=== PATIENT | female | born 1955 | race Caucasian/White ===

== ENCOUNTER → 2019-04-06 13:09 | Outpatient (CLI) | payer MEDICARE, OTHER, SELFPAY ==
--- NOTE | ~2019-04-06 | MM_ITS ---
EXAMINATION: MM screening [facility] BI w kacy HISTORY: Screening mammogram TECHNIQUE: Craniocaudal and mediolateral oblique 3-D tomosynthesis images were obtained and synthetic 2-D images were generated. CAD analysis was submitted and interpreted. COMPARISON: 02/05/2014, 11/18/2009, 12/01/2006 BREAST PARENCHYMAL COMPOSITION: There are scattered areas of fibroglandular density. FINDINGS: Scattered benign-appearing calcifications are present. There is no evidence of suspicious m ass, calcification, or architectural distortion to suggest malignancy in either breast. There has bee n no suspicious interval change. IMPRESSION: 1. No mammographic evidence of malignancy. 2. Recommend routine screening mammography in one year. BI-RADS Category 2: Benign finding(s). Reviewed, dictated and finalized at location A. GER LINE
--- NOTE | ~2019-04-06 | DEXA_ITS ---
Bone Density Report Name: Jamia Medellin Age: 63 Sex: Female Ethnicity: White Date of : 1955 Indication: postmenopausal osteoporosis; height loss; Referring Provider: Korey, Petra Fernandes Study: Bone densitometry was performed. Exam Date: April 06, 2019 Accession number: [id number] Bone Density: Region BMD T-score Z-score Classification AP Spine (L1-L4) 0.645 -3.7 -1.9 Osteoporosis Femoral Neck (Left) 0.604 -2.2 -0.7 Osteopenia Total Hip (Left) 0.708 -1.9 -0.7 Osteopenia Femoral Neck (Right) 0.647 -1.8 -0.3 Osteopenia Total Hip (Right) 0.785 -1.3 0.0 Osteopenia Total Hip Mean 0.747 -1.6 -0.4 Osteopenia World Health Organization criteria for BMD impression classify patients as: Normal (T-score at or above -1.0), Osteopenia (T-score between -1.0 and -2.5), or Osteoporosis (T-score at or below -2.5). 10-year Fracture Risk: FRAX not reported because: Some T-score for Spine Total or Hip Total or Femoral Neck at or below -2.5 Previous Exams: Region Exam Age BMD T-score BMD Change BMD Change Date g/cm2 vs Baseline vs Previous AP Spine(L1-L4) 04/06/2019 63 0.645 -3.7 -0.104* 0.004 01/07/2011 55 0.641 -3.7 -0.108 -0.055 11/18/2009 54 0.696 -3.2 -0.053* -0.053* 12/01/2006 51 0.749 -2.7 Total Hip(Left) 04/06/2019 63 0.708 -1.9 -0.026 -0.026 01/07/2011 55 0.734 -1.7 Total Hip(Right) 04/06/2019 63 0.785 -1.3 -0.037* -0.037* 01/07/2011 55 0.822 -1.0 *Denotes significance at 95% confidence level, LSC for AP Spine = 0.022 g/cm2, LSC for Total Hip = 0.027 g/cm2 Clinical Information Provided by Patient: Has used the following medications: Vitamin D, Calcium Patient maximum height was 62 Menopause Age: 48 No regular weight bearing exercise Does not regularly consume dairy products Drinks caffeinated beverages Onset of menses at age 12 Number of children 3 Impression: The patient has osteoporosis, based on the Total Spine T-score. The BMD for the Total Hip(Right) decreased, changing by -0.037 since the last DXA exam. Discussion: INCREASED RISK OF FRACTURE. BONE DENSITY IS UNDESIRABLY LOW AT ONE OR MORE SKELETAL SITES, CONSISTENT WITH POSTMENOPAUSAL OSTEOPOROSIS. This patient's lowest T-score meets the World Health Organization's (WHO) criteria for osteoporosis at one or more sites (T-score -2.5 or below). In untreated patients, the risk of
== END ==
PROVIDERS: Visit Provider Nurse Practitioner Obstetrics & Gynecology
DX: Z12.31 Encounter for screening mammogram for malignant neoplasm of breast (principal); Z78.0 Asymptomatic menopausal state; M81.0 Age-related osteoporosis without current pathological fracture; M85.852 Other specified disorders of bone density and structure, left thigh; M85.851 Other specified disorders of bone density and structure, right thigh
CPT/HCPCS: 77063; 77067; 77080

== ENCOUNTER → 2020-08-06 14:03 | Outpatient (CLI) | payer MEDICARE, OTHER, SELFPAY ==
--- NOTE | ~2020-08-06 | MM_ITS ---
EXAMINATION: MM screening [facility] BI w kacy HISTORY: Screening TECHNIQUE: Craniocaudal and mediolateral oblique 3-D tomosynthesis images were obtained and synthetic 2-D images were generated. CAD analysis was submitted and interpreted. COMPARISON: Comparison to multiple prior studies sequentially, with oldest reviewed study dated 03/2013. BREAST PARENCHYMAL COMPOSITION: There are scattered areas of fibroglandular density. FINDINGS: There is no evidence of suspicious mass, calcification, or architectural distortion to sugg est malignancy in either breast. There has been no suspicious interval change. IMPRESSION: 1. No mammographic evidence of malignancy. 2. Recommend routine screening mammography in one year. BI-RADS Category 1: Negative Reviewed, dictated and finalized at location A.
== END ==
PROVIDERS: PCP Family Medicine Sports Medicine; Visit Provider Family Medicine Sports Medicine
DX: Z12.31 Encounter for screening mammogram for malignant neoplasm of breast (principal)
CPT/HCPCS: 77063; 77067

== ENCOUNTER → 2021-04-29 12:23 | Outpatient (CLI) | payer MEDICARE, OTHER, SELFPAY ==
--- NOTE | ~2021-04-29 | DEXA_ITS ---
Bone Density Report Name: GENTRY LYON Age: 65 Sex: Female Ethnicity: White Date of : 1955 Indication: postmenopausal osteoporosis; monitoring treatment; height loss; Referring Provider: Tati Levine Study: Bone densitometry was performed. Exam Date: April 29, 2021 Accession number: [id number] Bone Density: Region BMD T-score Z-score Classification AP Spine (L1-L4) 0.657 -3.5 -1.6 Osteoporosis Femoral Neck (Left) 0.569 -2.5 -0.9 Osteoporosis Total Hip (Left) 0.686 -2.1 -0.7 Osteopenia Femoral Neck (Right) 0.656 -1.7 -0.1 Osteopenia Total Hip (Right) 0.750 -1.6 -0.2 Osteopenia Total Hip Mean 0.718 -1.9 -0.5 Osteopenia World Health Organization criteria for BMD impression classify patients as: Normal (T-score at or above -1.0), Osteopenia (T-score between -1.0 and -2.5), or Osteoporosis (T-score at or below -2.5). 10-year Fracture Risk: FRAX not reported because: Some T-score for Spine Total or Hip Total or Femoral Neck at or below -2.5 Treated for osteoporosis Previous Exams: Region Exam Age BMD T-score BMD Change BMD Change Date g/cm2 vs Baseline vs Previous AP Spine(L1-L4) 04/29/2021 65 0.657 -3.5 -0.092 0.012 04/06/2019 63 0.645 -3.7 -0.104* 0.004 01/07/2011 55 0.641 -3.7 -0.108 -0.055 11/18/2009 54 0.696 -3.2 -0.053* -0.053* 12/01/2006 51 0.749 -2.7 Total Hip(Left) 04/29/2021 65 0.686 -2.1 -0.048* -0.022 04/06/2019 63 0.708 -1.9 -0.026 -0.026 01/07/2011 55 0.734 -1.7 Total Hip(Right) 04/29/2021 65 0.750 -1.6 -0.072* -0.035* 04/06/2019 63 0.785 -1.3 -0.037* -0.037* 01/07/2011 55 0.822 -1.0 *Denotes significance at 95% confidence level, LSC for AP Spine = 0.022 g/cm2, LSC for Total Hip = 0.027 g/cm2 Clinical Information Provided by Patient: Is being treated for osteoporosis Has used the following medications: Actonel (i.e. risedronate), Vitamin D, Calcium Patient maximum height was 62.0 Menopause Age: 48 No regular weight bearing exercise Drinks caffeinated beverages Onset of menses at age 12 Number of children 3 Impression: The patient has osteoporosis, based on the Total Spine T-score. The BMD for the Total Hip(Right) decreased, changing by -0.035 since the last DXA exam. Discussion: SIGNIFICANT BONE LOSS OBSERVED. Adherence to therapy
== END ==
PROVIDERS: PCP Family Medicine Sports Medicine; Visit Provider Obstetrics & Gynecology
DX: Z78.0 Asymptomatic menopausal state (principal); M85.89 Other specified disorders of bone density and structure, multiple sites; M81.0 Age-related osteoporosis without current pathological fracture
CPT/HCPCS: 77080

== ENCOUNTER → 2022-01-14 16:04 | Outpatient (CLI) | payer MEDICARE, OTHER, SELFPAY ==
--- NOTE | ~2022-01-14 | XR_ITS ---
EXAM: XR knee RT 3V DATE: 01/14/2022 16:39 HISTORY: Pain in right knee . COMPARISON: None available. FINDINGS: Decreased mineralization. Uncomplicated appearing medial compartment hemiarthroplasty. No fracture or dislocation. No lytic or blastic lesion. Moderate osteoarthritic changes. No erosion or p eriosteal change. Calcified possible loose bodies in the posterior and medial joint recesses. Small v olume joint fluid. IMPRESSION: Uncomplicated appearing hemiarthroplasty hardware. Calcified possible loose bodies in the posterior and medial joint recesses. Small right knee joint effusion. MR of the knee may be helpful for further evaluation. Reviewed, dictated and finalized at location K. IT UNION FIELD EXAMINER IMPRESSION: Uncomplicated appearing hemiarthroplasty hardware. Calcified possib le loose bodies in the posterior and medial joint recesses. Small right knee césar int effusion. MR of the knee may be helpful for further evaluation.
== END ==
PROVIDERS: PCP Nurse Practitioner Family; Visit Provider Nurse Practitioner Family
DX: M25.561 Pain in right knee (principal); Z96.651 Presence of right artificial knee joint; M25.461 Effusion, right knee
CPT/HCPCS: 73562

== ENCOUNTER 2023-11-13 19:32 | Emergency (ER) | payer MEDICARE, OTHER, SELFPAY ==
--- NOTE | ~2023-11-13 | CT_ITS ---
Noncontrast CT scan of the lumbar spine CLINICAL HISTORY: Back pain TECHNIQUE: Axial noncontrast imaging of the lumbar spine was performed. Sagittal and coronal reformat evangelist images were constructed. Dose reduction technique was used on this scan by utilizing automated ex posure control and iterative reconstruction technique. The dose-length product (DLP) was 538.59 mGy-c m. FINDINGS: There is acute moderate compression fracture at the superior aspect of the L1 vertebral bod y, with loss of height, and additional oblique fracture line through the anterosuperior corner. There are chronic bilateral L5 pars interarticularis defects, with 12 mm anterolisthesis of L5 over S1. At L1-L2, there is no significant disc bulge or herniation. No spinal canal stenosis or neural forami nal narrowing. At L2-L3, there is no significant disc bulge or herniation. No spinal canal stenosis or neural forami nal narrowing. At L3-L4, there is no significant disc bulge or herniation. There is minimal ligamentum flavum hypert rophy. No spinal canal stenosis or neural foraminal narrowing. At L4-L5, there is mild disc bulge and moderate facet arthropathy. There is probable mild to moderate central canal stenosis and moderate to advanced bilateral neural foraminal narrowing. At L5-S1, there is disc bulge/uncovering. Probable focal mild central canal stenosis. There is severe bilateral neural foraminal compromise. Paravertebral soft tissues are unremarkable. Impression: Acute L1 compression fracture, as detailed above. Chronic bilateral L5 pars interarticularis defects, with 12 mm anterolisthesis of L5 over S1. Moderate to advanced degenerative spondylosis at L4-L5. Advanced bilateral neural foraminal narrowing at L5-S1. Reviewed, dictated and finalized at [facility]. Impression: Acute L1 compression fracture, as detailed above. Chronic bilateral L5 pars interarticularis defects, with 12 mm anterolisthesis of L5 over S1. Moderate to advanced degenerative spondylosis at L4-L5. Advanced bilateral neur al foraminal narrowing at L5-S1.
[2023-11-13 19:42] VITALS: BP 133/108; PULSE 82; RESP 20; TEMP 36.7; O2SAT 98
--- NOTE | 2023-11-13 19:48 | PC.NURSE ---
ice pack given.
[2023-11-13 21:07] VITALS: BP 168/85; PULSE 68; RESP 17; O2SAT 96
--- NOTE | 2023-11-13 21:55 | ED.BACK ---
HPI - Back Pain/Injury General Chief Complaint: Back Pain/Injury Stated Complaint: lower back pain, fall off garment steamer Time Seen by Provider: 11/13/23 21:20 Source: patient Mode of arrival: EMS Limitations: no limitations History of Present Illness HPI Narrative: This is a 67 year old female that presents to the ER for low back pain. Reports she fell backwards off of a garment steamer. She fell onto her back. She did not hit her head or lose consciousness. Reports since she has had low back pain. Reports history of chronic low back problems. She took a muscle relaxer and was given Fentanyl by EMS. Denies saddle anesthesia, bowel/bladder incontinence, numbness or weakness. Related Data Home Medications Medication Instructions Recorded Confirmed calcium carbonate (Calcium 500) 500 mg PO DAILY 07/20/23 10/19/23 estradiol 0.5 mg tablet 0.5 mg PO DAILY 07/20/23 10/19/23 multivitamin (Daily Multi-Vitamin 1 tablet PO DAILY 07/20/23 10/19/23 tablet) Allergies Allergy/AdvReac Type Severity Reaction Status Date / Time No Known Allergies Allergy Verified 11/13/23 21:07 Review of Systems Review of Systems: CONSTITUTIONAL: Denies fever MUSCULOSKELETAL: Reports back pain, joint pain, and myalgia. NEUROLOGIC: Denies numbness, or weakness. All systems reviewed & are unremarkable except as noted in HPI and below PMFSH Past Medical History Medical History Hyperlipidemia Osteoporosis Surgical History Surgical History H/O eye surgery History of hysterectomy S/P knee replacement Family History Family History Mother Thyroid disorder Social History Social History Smoking status: Never smoker Alcohol intake: never Substance use: never Do You Feel Safe in your Home?: Yes Lack of Transportation: No Lack of Food: Never True Current Housing: I Have Housing Concerned About Future Housing: No Difficulty Paying Gas/Electric Bills: No Difficulty Paying for Meds: No Currently Unemployed: No Education: Don't Know Difficulty w/ Childcare or Family Care: No Living arrangements: alone Additional living arrangements comments: Occupation/Education: retired Spiritual care concerns: No Agree to blood products: Yes Exam Narrative: GENERAL: Well-appearing, well-nourished, and in no acute distress. HEAD: Normocephalic, atraumatic. EYES: EOMI. CHEST: Clear to auscultation. No respiratory distress. No wheezes rales or rhonchi HEART: Regular rate and rhythm. No murmur heard. Normal peripheral pulses. BACK: No midline thoracic spine tenderness. Tender to palpation of midline lumbar spine EXTREMITIES: Normal range of motion. No edema. Strength equal in bilateral lower extremities (5/5). Normal DP pulses SKIN: Warm, dry, no rash. NEURO: No focal deficits. Alert and oriented x3. PSYCH: Normal mood and affect Course Course Emergency Course: Patient updated on workup and agrees with plan of care Vital Signs Vital signs: Vital Signs Temperature 98.0 F 11/13/23 19:42 Pulse Rate 82 11/13/23 19:42 Respiratory Rate 20 11/13/23 19:42 Blood Pressure 133/108 H 11/13/23 19:42 Pulse Oximetry 98 11/13/23 19:42 Oxygen Delivery Room Air 11/13/23 19:42 Temperature 98.0 F 11/13/23 19:42 Pulse Rate 87 11/14/23 01:28 Respiratory Rate 18 11/14/23 01:28 Blood Pressure 133/88 11/14/23 01:28 Pulse Oximetry 98 11/14/23 01:28 Oxygen Delivery Room Air 11/13/23 19:42 MDM - Back Pain/Injury MDM Narrative Medical decision making narrative: Patient presents to the emergency department after a fall today with low back pain. She is neurologically intact. CT lumbar spine shows an acute mild compression fracture of L1. Patient updated on her work
[2023-11-14] MEDS: HYDROcodone/acetaminophen (*CRX) 5-325 MG TABLET 1 TAB PO (00:48)
[2023-11-14] MEDS: LIDOCAINE 5% PATCH 1 PATCH TRANSDERM (01:17)
[2023-11-14 01:28] VITALS: BP 133/88; PULSE 87; RESP 18; O2SAT 98
== END 2023-11-14 01:30 | disposition home or self-care (01) ==
PROVIDERS: Emergency Provider Physician Assistant; PCP Nurse Practitioner Family
DX: S32.018A Other fracture of first lumbar vertebra, initial encounter for closed fracture (principal); W17.89XA Other fall from one level to another, initial encounter; E78.5 Hyperlipidemia, unspecified; M81.0 Age-related osteoporosis without current pathological fracture
CPT/HCPCS: 72131; 99284; A9270

== ENCOUNTER 2023-12-02 14:59 | Outpatient (CLI) | payer MEDICARE, OTHER, SELFPAY ==
--- NOTE | ~2023-12-02 | XR_ITS ---
XR hip RT 2V w AP pelvis 12/02/2023 15:30 Indication: Hip pain Procedure: AP pelvis and 2 views right hip Comparison: No prior studies for comparison. Findings: Pelvic rings are intact. There is bilateral osteoarthritis of the hips, moderate on the rig ht and mild on the left. No fracture or traumatic malalignment. No significant soft tissue abnormalit y. No foreign bodies. Impression: 1: Bilateral osteoarthritis of the hips, right greater than left. Reviewed, dictated and finalized at location B. Impression: 1: Bilateral osteoarthritis of the hips, right greater than left.
--- NOTE | ~2023-12-02 | XR_ITS ---
EXAM: XR knee RT 3V DATE: 12/02/2023 15:30 HISTORY: M25.561 - Pain in right knee . COMPARISON: 01/14/2022. FINDINGS: Decreased mineralization. No fracture or dislocation. No lytic or blastic lesion. Uncompli cated appearing right medial compartment hemiarthroplasty hardware. Mild degenerative changes in the lateral and patellofemoral compartments. No erosion or periosteal change. Calcified/hyperdense foci o verlying the medial and posterior joint recesses. Small-volume joint fluid. IMPRESSION: Uncomplicated appearing arthroplasty hardware. Stable appearing hyperdensities overlying the posterior lateral joint recesses which may represent loose bodies. Small joint effusion. Reviewed, dictated and finalized at location K. IMPRESSION: Uncomplicated appearing arthroplasty hardware. Stable appearing hyp erdensities overlying the posterior lateral joint recesses which may represent loose bodies. Small joint effusion.
== END 2023-12-02 15:00 | disposition home or self-care (01) ==
PROVIDERS: PCP Orthopaedic Surgery; Visit Provider Nurse Practitioner Family
DX: M25.461 Effusion, right knee (principal); M16.11 Unilateral primary osteoarthritis, right hip; Z96.651 Presence of right artificial knee joint; R10.30 Lower abdominal pain, unspecified
CPT/HCPCS: 73502; 73562

== ENCOUNTER 2023-12-09 09:15 | Outpatient (CLI) | payer MEDICARE, OTHER, SELFPAY ==
--- NOTE | ~2023-12-09 | XR_ITS ---
3 VIEWS LUMBAR SPINE Ordering provider: Luis Alfredo Blair MD History: . S32.000A - Wedge compression fracture of unspecified lumb... . Comparison: None. FINDINGS: VERTEBRAL BODIES:Compression fracture of L1 which may be acute or chronic. MRI evaluation advised. Sp ondylolisthesis with spondylolysis is seen at the level of L5-S1. DISK SPACES: Narrowing of T12-L1 and L5-S1. SOFT TISSUES: Atherosclerotic changes of the aorta. IMPRESSION: Compression fracture of L1 with loss of volume of about 70% which is most likely acute. MRI confirmat ion advised. Spondylolisthesis with spondylolysis at the level of L5-S1. Reviewed, dictated and finalized at location A. IMPRESSION: Compression fracture of L1 with loss of volume of about 70% which is most likel y acute. MRI confirmation advised. Spondylolisthesis with spondylolysis at the level of L5-S1.
== END 2023-12-09 09:16 | disposition home or self-care (01) ==
LOC: ANHIMG 09:20
PROVIDERS: PCP Nurse Practitioner Family; Visit Provider Neurological Surgery
DX: S32.000A Wedge compression fracture of unspecified lumbar vertebra, initial encounter for closed fracture (principal)
CPT/HCPCS: 72100

== ENCOUNTER 2024-01-25 12:54 | Outpatient (CLI) | payer MEDICARE, OTHER, SELFPAY ==
--- NOTE | ~2024-01-25 | XR_ITS ---
EXAMINATION: XR lumbar spine 2-3V DATE: 01/25/2024 13:39 INDICATION: Wedge compression fracture of unspecified vertebra. TECHNIQUE: 3 views of lumbar spine were obtained. COMPARISON: Lumbar spine radiographs 12/09/2023 FINDINGS: There is 5 degrees dextrocurvature of lumbar spine. There are chronic bilateral L5 pars def ects. There is 10 mm anterolisthesis of L5 on S1. There is mild chronic height loss of L5 vertebral b mariana posteriorly. There is a burst fracture of L1 with 3/5 loss of height and focal kyphosis. There is mildly decreased disc height at T12-L1 and severely decreased disc height at L5-S1. IMPRESSION: 1. Burst fracture of L1, worsened from 11/14/2023. 2. Chronic bilateral L5 pars defects with grade 2 anterolisthesis of L5 on S1. 3. Severe lower lumbar spondylosis. Reviewed, dictated and finalized at location A. GAGE ACCOUNTING CLERK
--- NOTE | ~2024-01-25 | XR_ITS ---
EXAMINATION: XR thoracic spine 2V DATE: 01/25/2024 13:39 INDICATION: Collapsed vertebra, not elsewhere classified. TECHNIQUE: 3 views of thoracic spine including upright views were obtained. COMPARISON: Lumbar spine radiographs 12/09/2023 FINDINGS: There is an 8 degrees levocurvature of thoracic spine. There is a burst fracture of L1 with 3/5 loss of height, retropulsion of bone 5 mm into central spinal canal, and focal kyphosis. There i s mildly decreased disc height from T5-T6 through T9-T10. IMPRESSION: 1. L1 burst fracture, worsened from 12/09/2023. 2. Mild thoracic spondylosis. Reviewed, dictated and finalized at location A. GUARD SKATING RINK
== END 2024-01-25 12:55 | disposition home or self-care (01) ==
PROVIDERS: PCP Nurse Practitioner Family; Visit Provider Neurological Surgery
DX: S32.011A Stable burst fracture of first lumbar vertebra, initial encounter for closed fracture (principal); X58.XXXA Exposure to other specified factors, initial encounter; M47.815 Spondylosis without myelopathy or radiculopathy, thoracolumbar region
CPT/HCPCS: 72070; 72100

== ENCOUNTER 2024-02-09 09:01 | Outpatient (CLI) | payer MEDICARE, OTHER, SELFPAY ==
--- NOTE | ~2024-02-09 | DEXA_ITS ---
Bone Density Report Name: GENTRY LYON Age: 68 Sex: Female Ethnicity: White Date of : 1955 Indication: postmenopausal; screening for osteoporosis; parental hip fracture; prior fracture; hysterectomy; Referring Provider: YUNIEL SERRANO Study: Bone densitometry was performed. Exam Date: February 09, 2024 Accession number: [id number] Bone Density: Region BMD T-score Z-score Classification AP Spine(L2, L3, L4) 0.715 -3.3 -1.1 Osteoporosis Femoral Neck (Left) 0.565 -2.6 -0.8 Osteoporosis Total Hip (Left) 0.782 -1.3 0.2 Osteopenia Femoral Neck (Right) 0.667 -1.6 0.2 Osteopenia Total Hip (Right) 0.779 -1.3 0.2 Osteopenia Femoral Neck Mean 0.616 -2.1 -0.3 Osteopenia Total Hip Mean 0.780 -1.3 0.2 Osteopenia World Health Organization criteria for BMD impression classify patients as: Normal (T-score at or above -1.0), Osteopenia (T-score between -1.0 and -2.5), or Osteoporosis (T-score at or below -2.5). 10-year Fracture Risk: FRAX not reported because: Some T-score for Spine Total or Hip Total or Femoral Neck at or below -2.5 Prior hip or vertebral fracture Treated for osteoporosis Clinical Information Provided by Patient: Have had a previous hip or vertebral fracture Has had a low trauma fracture Parent has had a hip fracture Is being treated for osteoporosis Has used the following medications: Actonel (i.e. risedronate), HRT (i.e. estrogen/hormone therapy), Vitamin D, Calcium Has the following medical conditions: Hysterectomy Patient maximum height was 61 Menopause Age: 48 No regular weight bearing exercise Drinks caffeinated beverages Onset of menses at age 10 Number of children 3 Impression: The patient has established osteoporosis, based on the Total Spine T-score and the existence of a prior fracture. The patient has risk factors, including: parental hip fracture, previous fracture. Discussion: It is important to ask patients whether they are taking their medications and to encourage continued and appropriate compliance with their osteoporosis therapies to reduce fracture risk. It is also important to review their risk factors and encourage appropriate calcium and vitamin D intakes, exercise, fall prevention and other lifestyle measures. Follow-Up: Consider a repeat BMD and Vertebral Fracture Assessment (VFA) exam in 2 years or sooner if medically necessary, to reassess this patient's status. Reported by: ELAINA on 02/09/2024 9:24:00 AM. Reviewed, dictated and finalized at location A.
== END 2024-02-09 09:02 | disposition home or self-care (01) ==
PROVIDERS: PCP Nurse Practitioner Family; Visit Provider Nurse Practitioner Family
DX: Z78.0 Asymptomatic menopausal state (principal); M81.0 Age-related osteoporosis without current pathological fracture; M85.89 Other specified disorders of bone density and structure, multiple sites
CPT/HCPCS: 77080

== ENCOUNTER 2024-08-10 00:19 | Day surgery (SDC) | payer MEDICARE, OTHER, SELFPAY ==
[2024-08-02 14:42] VITALS: BMI 27.5
--- OUTSIDE RECORDS SUMMARY | 2024-08-10 01:31 | XMS_ITS | Data Portability ---
Author Organization [employer], [facility] Address [address] [address] Assessment No assessment recorded. Plan of Treatment Reminders Order Date Submit Date Provider Last Modified By Organization Details Last Modified Time Details Appointments None recorded. Lab None recorded. Referral None recorded. Procedures None recorded. Surgeries None recorded. Imaging XR, knee - WEIGHT BEARING AP, PA FLEX AND LATERAL VIEWS WITH A STANDARD [place] 2020 021 [email or web address] Not available 15:00:10 Medication Orders None recorded. Patient TargetsNo targets recorded. Patient InstructionsNo instructions recorded. Reason for Referral None Reported. Problems No Known Problems Procedures Surgical History Date Name Laterality Status Provider Name and Address Organization Details Recorded Time Generic Procedure completed [facility] [address] [place] [address], [id number], [employer] 08/27/2020 08:46:39 Imaging Results None recorded. Procedure Notes None recorded. Medical Equipment None Reported. Allergies No known drug allergies Medications Name Sig Start Date Stop Date Status Note LastModified by Organization Details LastModified Time risedronate 35 mg tablet TAKE ONE TABLET BY MOUTH ONCE A WEEK IN THE MORNING 30 MINUTES BEFORE FOOD DRINK OR MEDS active Not Available Not Available No t Available ezetimibe 10 mg tablet TAKE 1 TABLET BY MOUTH ONCE DAILY active Not Available Not Available No t Available Vitals Date Recorded Body height Body mass index (BMI) Body weight Body temperature Provider Name and Address Organization Details Last Updated DateTime 08/26/2020 152.4 cm 29.7 kg/m2 28805.04 g 97.3 [degF] [facility] Mon [facility] 08/26/2020 14:45:41 Social History Question Answer Notes LastModified by Organizat ion Details LastModified Time Tobacco Smoking Status Never Smoker [facility]ita willoughby [facility] 08/26/2020 14:46:36 Which Illicit Or Recreational Drugs Have You Used? No Information not available 08/26/2020 Marital Status Informatio n not available 08/26/2020 Sex: Unknown Functional Status Question Answer Note LastModified by Organizat ion Details LastModified Time What is your level of alcohol consumption? Occasional Information not available 08/26/2020 Mental Status None recorded. Family History Relationship Description Onset Age of this Age Resolved Age Notes LastModified by Organization Details LastModified Time Mother Hypothyroidi sm Not available 2020 14:46:13 Mother Kidney disease Not available 2020 14:46:25 Medical History Condition Response HIV or AIDS N Coronary Artery Disease N Other Cancer N Gout N Kidney Stones N Hyperthyroidism N Breast Cancer N Head Trauma/Injury N Hernia N Lung Cancer N Lung Disease N Hypothyroidism N Depression N Blood Clots N COPD N Pacemaker N Anxiety Disorder N Arthritis N Alcohol / Substance Abuse N Kidney Cancer N Cancer N Stroke N Neck Injury N Leg or Foot Ulcers N High Cholesterol N Skin Cancer N Liver Disease N Rheumatoid Arthritis N Fibromyalgia N Headaches N Concussion N Kidney Disease N Heart Problems N Prostate Cancer N Migraines N Thyroid Problems N Autoimmune Disorder N Anemia N Multiple Sclerosis N Tendon Tear N Ulcers N Heart Attack ([place]) N Diabetes N Bleeding Disorder N Seizures/Epilepsy N Cardiac Stent N Tuberculosis N Urinary Tract Infection N Back Problems N Diverticulitis N Asthma N Lupus N Peripheral Vascular Disease N Sleep Disorder N GERD/Reflux N Hepatitis N Aneurysm N Thyroid Cancer N Heart Disease N Pulmonary Embolism N Hypertension N Osteoporosis N Gynecological HistoryNo gynecological history recorded. Obstetrics History GPAL:G 0 P 0 0 0 0 Past Encounters Encounter ID Performer Location Encounter Start Date Encounter Closed Date Diagnosis/Indication Diagnosis SNOMED-CT Code Diagnosis ICD10 Code Diagnosis Note [id number] [facility] [address] [address] [facility] ,[address] [place] [id number] 08/26/2020 14:14:45 09/04/2020 11:25:53 Knee pain 63385337 M25.561 Osteoarthr itis of right knee joint 7320961134 75793 M17.11 Derangemen t of medial meniscus 441438349 M23.306 At today's office visit I had a lengthy discussion with the patient regards to her right knee. She does have a media meniscal extrusion that easily reduces with valgus loading. The recommenda tion at this time would be to see Dr. Velazquez to be evaluated for the Reynolds procedure. SHe currently has Medicare with a secondary of [employer] which Dr. Velazquez does not accept. We discussed other options in regards the right knee including treated with stem cell interventi on the utilizatio n of a medial bedspread inspector brace. She wants to try to obtain an appointmen t with Dr. Velazquez to discuss surgical options. Greater than 45 minutes face-to-fa ce visit with more than 50% of my time spent counseling the patient about their diagnosis including pathophysi ology and treatment options. Health Concerns Section Related Observation LastModified by Organization Detai ls LastModified Time None Recorded Concern Status LastModified by Organization Details LastModified Time None Recorded Advance Directives Directive None Recorded Payers Encounter Date Sequence Insurance Name Policy Number Policy Hernández Covered Member ID Hernández Member ID Guarantor Name 08/26/2020 2 [place] (MEDICARE SUPPLEMENT) Jamia Medellin [id number] Jamia Medellin 08/26/2020 1 [place] Jamia Medellin [id number] Jamia Medellin Notes Date Note Type Note Provider Name and Address Organization Details Recorded Time 08/26/2020 text/html 64-year-old fema ann comes in today complaining of pain and discomfort in her right knee is been ongoing since April when she was pulled down a hill by her dog she twisted her knee and started to experience pain and discomfort on the medial aspect. Pain is steadily gotten better. She describes the pain is intermittent. She rates her pain as a 3/10. She also complains of giving way. Going up and down steps causes her the most pain. Ice rest and Tylenol have helped. She has also tried physical therapy as well as a corticosteroid injection. Corticosteroid injection was approximately 2 weeks ago and provided her with mild benefit. She denies any locking popping or giving way. [facility] [address], [place], [address], [facility] [employer] [facility], [facility] 08/27/2020 08:58:55 OBGyn Episode No OBEpisode recorded.
--- OUTSIDE RECORDS SUMMARY | 2024-08-10 01:31 | XMS_ITS | Data Portability ---
Author Organization [facility] [employer], Main Office Address [address] [place] [address] Assessment Encounter Date Assessment Date Assessment LastModified by Organization Details LastModified Time 11/18/2022 11/18/2022 EKG and Letter of surgery Clearance given to patient and faxed 11/18/22 Not available 11/18/2022 15:21:57 Plan of Treatment Reminders Order Date Submit Date Provider Last Modified By Organization Details Last Modified Time Details Appointments None recorded. Lab lipid panel, serum 2022 023 [facility], [address] [facility], [place], [address], 3 21:11:56 hepatic function panel, serum 2022 023 [facility], [address] [facility], [place], [address], 3 21:11:58 BMP, serum or plasma 2022 023 [facility], [address] [facility], [place], [address], 21:11:57 Referral None recorded. Procedures None recorded. Surgeries None recorded. Imaging electrocard iogram 2023 024 Not available 4 08:24:23 electrocard iogram 2022 023 [facility], [address] [place] [address], [place], [address], 3 16:21:55 Medication Orders rosuvastati n 5 mg tablet 2023 024 [facility] [address] [facility], [place], [address], 4 11:01:08 triamcinolo ne acetonide 0.5 % topical cream 2022 023 [facility] #[id number], [address] , [place], [address], 3 14:37:15 triamcinolo ne acetonide 40 mg/mL suspension for injection 2022 023 Not available 3 14:37:19 Patient TargetsNo targets recorded. Patient Instructions Encounter Date Encounter Id Patient Instructions Last Modified By Organization Details Last Modified Time 06/09/2022 [id number] mo fu herpes, osteoporosis, hyperlipidemia, depression- with CA. Vaginal prolapse. Not available 06/09/2022 14:35:43 Reason for Referral None Reported. Results Created Date Observation Date Name Description Value Unit Range Abnormal Flag Note LastModifiedBy Organization Detail LastModifiedTime 07/02/1907/01/2022 LIPID PANEL , STAND TOBY cholesterol, total 185 mg/dL <200 normal Not Available [facility] [address] [address] [place], [address], 07/01/2022 21:11:56 07/02/1907/01/2022 LIPID PANEL , STAND TOBY HDL cholesterol 49 mg/dL > or = 50 low Not Available [facility] [address] [address], [place], [address], 07/01/2022 21:11:56 07/02/1907/01/2022 LIPID PANEL , STAND TOBY triglyceride s 139 mg/dL <150 normal Not Available [facility] [address] [place], [address], 07/01/2022 21:11:56 07/02/1907/01/2022 LIPID PANEL , STAND TOBY LDL-choleste rol 111 mg/dL _(arslan c) high Refer ence range : <100 Jenniffer able range <100 mg/dL for prima ry preve ntion ; <70 mg/dL for patie nts with CHD or diabe tic patie nts with > or = 2 CHD risk facto rs. LDL-C is now calcu lated using the Jess n-Hop kins calcu wenceslao n, which is a valid ated novel metho d provi ding ne r accur acy than the Fried ciara equat ion in the estim ation of LDL-C . Jess n SS et al. [place]. 2013; 310(1 9): 2061- 2068 (http ://ed ucati on.[employer]. com/f aq/FA Q164) Not Available [facility] [address] [place], [address], 07/01/2022 21:11:56 07/02/1907/01/2022 LIPID PANEL , STAND TOBY chol/HDLC ratio 3.8 (calc ) <5.0 normal Not Available [facility] [address] [place], [address], 07/01/2022 21:11:56 07/02/1907/01/2022 LIPID PANEL , STAND TOBY non HDL cholesterol 136 mg/dL _(arslan c) <130 high For patie nts with diabe mikhail plus 1 major ASCVD risk facto r, treat ing to a non-H DL-C goal of <100 mg/dL (LDL- C of <70 mg/dL ) is consi dered a thera peuti c optio n. Not Available [facility] [address] [place], [address], 07/01/2022 21:11:56 07/02/1907/01/2022 BASIC METAB OLIC PANEL glucose 105 mg/dL 65-99 high Fasti ng refer ence inter lesa For someo ne witho ut known diabe mikhail, a gluco se value betwe en 100 and 125 mg/dL is consi stent with predi abete s and shoul d be confi rmed with a follo w-up test. Not Available [address], [address], 07/01/2022 21:11:57 07/02/19 23 07/01/2022 BASIC METAB OLIC PANEL urea nitrogen (BUN) 16 mg/dL 7-25 normal Not Available [facility] [address], [address], 07/01/2022 21:11:57 07/02/19 23 07/01/2022 BASIC METAB OLIC PANEL creatinine 0.90 mg/dL 0.50-1 .05 normal Not Available [address] [address] [place], [address], 07/01/2022 21:11:57 07/02/19 23 07/01/2022 BASIC METAB OLIC PANEL eGFR 70 mL/mi n/1.7 3m2 > or = 60 normal The eGFR is based on the CKD-E PI 2020 equat ion. To calcu late the new eGFR from a previ ous Creat inine or Cysta shaw C resul t, go to https ://iman champion.thi burnett/noe wynn s/ kdoqi /gfr% 5Fcal culat or Not Available [address] [address] [place], [address], 07/01/2022 21:11:57 07/02/19 23 07/01/2022 BASIC METAB OLIC PANEL BUN/creatini ne ratio NOT APPLIC ABLE (calc ) 6-22 Not Available [address] [address] [place], [address], 07/01/2022 21:11:57 07/02/19 23 07/01/2022 BASIC METAB OLIC PANEL sodium 141 mmol/ L 135-14 6 normal Not Available [facility] [address] [address] [place], [address], 07/01/2022 21:11:57 07/02/19 23 07/01/2022 BASIC METAB OLIC PANEL potassium 4.5 mmol/ L 3.5-5. 3 normal Not Available [address], [address], 07/01/2022 21:11:57 07/02/19 23 07/01/2022 BASIC METAB OLIC PANEL chloride 105 mmol/ L 98-110 normal Not Available [address], [address], 07/01/2022 21:11:57 07/02/19 23 07/01/2022 BASIC METAB OLIC PANEL carbon dioxide 29 mmol/ L 20-32 normal Not Available [address], [address], 07/01/2022 21:11:57 07/02/19 23 07/01/2022 BASIC METAB OLIC PANEL calcium 9.6 mg/dL 8.6-10 .4 normal Not Available [address], [address], 07/01/2022 21:11:57 07/02/19 23 07/01/2022 HEPAT IC FUNCT ION PANEL protein, total 7.1 g/dL 6.1-8. 1 normal Not Available [address], [address], 07/01/2022 21:11:57 07/02/19 23 07/01/2022 HEPAT IC FUNCT ION PANEL albumin 4.1 g/dL 3.6-5. 1 normal Not Available [address], [address], 07/01/2022 21:11:57 07/02/19 23 07/01/2022 HEPAT IC FUNCT ION PANEL globulin 3.0 g/dL_ (calc ) 1.9-3. 7 normal Not Available [address], [address], 07/01/2022 21:11:57 07/02/19 23 07/01/2022 HEPAT IC FUNCT ION PANEL albumin/glob ulin ratio 1.4 (calc ) 1.0-2. 5 normal Not Available [address], [address], 07/01/2022 21:11:57 07/02/19 23 07/01/2022 HEPAT IC FUNCT ION PANEL bilirubin, total 0.5 mg/dL 0.2-1. 2 normal Not Available [address], [address], 07/01/2022 21:11:57 07/02/19 23 07/01/2022 HEPAT IC FUNCT ION PANEL bilirubin, direct 0.1 mg/dL < or = 0.2 normal Not Available [address], [address], 07/01/2022 21:11:57 07/02/19 23 07/01/2022 HEPAT IC FUNCT ION PANEL bilirubin, indirect 0.4 mg/dL _(arslan c) 0.2-1. 2 normal Not Available [address], [address], 07/01/2022 21:11:57 07/02/19 23 07/01/2022 HEPAT IC FUNCT ION PANEL alkaline phosphatase 75 U/L 37-153 normal Not Available [address] [address] [place], [address], 07/01/2022 21:11:57 07/02/19 23 07/01/2022 HEPAT IC FUNCT ION PANEL AST 13 U/L 10-35 normal Not Available [address], [address], 07/01/2022 21:11:57 07/02/19 23 07/01/2022 HEPAT IC FUNCT ION PANEL ALT 9 U/L 6-29 normal Not Available [facility] [address] [address], [place], [address], 07/01/2022 21:11:57 01/15/20 22 01/14/2022 XR, knee, 3 view No observ ation record ed. [id number] [facility] [address] [facility] [address], [place], [address], 05/07/2022 00:29:12 11/19/19 23 elect kristin diogr am No observ ation record ed. [email or web address] [facility] [address], [place], [address], 11/18/2022 15:00:50 Result Notes None recorded. Problems Name Problem SNOMED Code Status Onset Date Resolution Date Notes Provider Name and Address Organization Details Recorded Time Family history of Thyroid disorder 789181009 Active 2021 Not Available [facility] 3 00:28:00 Eruption 001443309 Active 2021 Not Available [facility] 3 00:28:00 Obesity 961795378 Active 2021 Not Available [facility] 3 00:28:00 Hyperlipidemi a 53483343 Active 2021 Not Available [facility] 3 00:28:00 Osteoporosis 97537722 Active 2021 Not Available [facility] 3 00:28:00 Herpes simplex 95839301 Active 2021 Type I and II per test 2 lab. Not Available [facility] 3 00:28:00 Skin lesion 70832277 Active 2021 Not Available [facility] 3 00:28:00 Low back strain 978774669 Active 2022 Winifred Medina, MARAL [address] [facility], [facility] [address], [place], [address] , [facility] 3 14:30:08 Contact dermatitis caused by urushiol from [facility] 691031631 Active 2022 Winifred Medina NP [address], [address], [place], [address] , [employer] [facility] 3 17:44:28 Uterine prolapse 83976098 Active 2022 Winifred Medina NP [address] [facility], [address], [place], [address] , [employer] 3 14:50:27 Herpes simplex type 2 infection 480751407 Active 2022 Winifred Medina NP [address] [facility], [address], [place], [address] , [employer] 3 15:03:42 Herpes simplex type 1 infection 624597469 Active 2022 Winifred Medina NP [address] [facility], [address], [place], [address] , [employer] 3 15:03:51 Problem Notes None recorded. Procedures Surgical History Date Name Laterality Status Provider Name and Address Organization Details Recorded Time 03/08/19 23 hysterectomy completed Winifred Gresham RN [facility] [employer] 06/09/2023 10:30:29 07/09/19 22 operation on retina completed Not Available [facility] 05/07/2022 00:27:05 Knee Replacement completed Not Available [facility] 05/07/2022 00:27:05 Imaging Results None recorded. Procedure Notes None recorded. Medical Equipment None Reported. Allergies No known drug allergies Medications Name Sig Start Date Stop Date Status Note LastModified by Organization Details LastModified Time amoxicillin 500 mg capsule TAKE 1 CAPSULE BY MOUTH 3 TIMES A DAY 11/18 completed Not Available Not Available Not Available triamcinolo ne acetonide 0.5 % topical cream APPLY A THIN LAYER TO THE AFFECTED AREA(S) BY TOPICAL ROUTE 2 TIMES PER DAY for 7 days 11/18 completed Not Available Not Available Not Available ofloxacin 0.3 % eye drops INSTILL 1 DROP INTO THE RIGHT EYE 3 TIMES DAILY 06/09 completed Not Available Not Available Not Available hydrocodone 5 mg-acetamin ophen 325 mg tablet TAKE 1 TABLET BY MOUTH EVERY 4-6 HOURS NEEDED FOR PAIN 11/18 completed Not Available Not Available Not Available acyclovir 400 mg tablet TAKE 1 TABLET BY MOUTH THREE TIMES A DAY NEEDED FOR OUTBREAKS X5 DAYS 06/08 completed Not Available Not Available Not Available valacyclovi r 500 mg tablet TAKE 1 TABLET BY MOUTH FOUR TIMES A DAY FOR 7 DAYS 01/14 completed Not Available Not Available Not Available sulfamethox azole 800 mg-trimetho prim 160 mg tablet TAKE 1 TABLET BY MOUTH EVERY 12 HOURS BEGIN POST SURGERY 06/08 completed Not Available Not Available Not Available triamcinolo ne acetonide 0.1 % topical cream APPLY TO AFFECTED AREA TWICE A DAY 11/18 completed Not Available Not Available Not Available dexamethaso ne sodium phosphate 0.1 % eye drops INSTILL ONE DROP INTO RIGHT EYE 4 TIMES A DAY. 06/09 completed Not Available Not Available Not Available oxycodone-a cetaminophe n 5 mg-325 mg tablet 05/08 completed Not Available Not Available Not Available triamcinolo ne acetonide 40 mg/mL suspension for injection Take 60 mg every day by injection route for 1 day. 11/18 completed Not Available Not Available Not Available cephalexin 500 mg capsule 05/08 completed Not Available Not Available Not Available tobramycin 0.3 % eye drops INSTILL 1 DROP INTO RIGHT EYE 4 TIMES DAILY STARTING AFTER SURGERY 12/12 completed Not Available Not Available Not Available Methylpredn isolone (Mckinley) 4 mg tablets in a dose pack Take by oral route as directed. 11/18 completed Not Available Not Available Not Available docusate sodium 100 mg capsule TAKE 1 CAPSULE BY MOUTH TWICE DAILY BEGIN AFTER SURGERY active Not Available Not Available No t Available diclofenac sodium 75 mg tablet,arvin yed release TAKE 1 TABLET BY MOUTH TWICE A DAY 05/08 completed Not Available Not Available Not Available lovastatin 20 mg tablet active Not Available Not Available Not Available estradiol 0.01% (0.1 mg/gram) vaginal cream USE 0.5 GRAMS VAGINALLY AT BEDTIME ON WEDNESDAY, AND WEDNESDAY AFTER PACKING REMOVED active Not Available Not Available No t Available methylpredn isolone 4 mg tablets in a dose pack TAKE 6 TABS ON DAY 1 DIRECTED ON PACKAGE AND DECREASE BY 1 TAB EACH DAY FOR 6 DAYS *START 10/09* 11/18 completed Not Available Not Available Not Available ondansetron 4 mg disintegrat ing tablet DISSOLVE 1 TABLET BY MOUTH ON TOP OF TONGUE AND SWALLOW EVERY 6 HOURS 06/08 completed Not Available Not Available Not Available tobramycin 0.3 %-dexametha sone 0.1 % eye drops,suspe nsion INSTILL 1 DROP 4 TIMES A DAY IN LEFT EYE-START DROPS AFTER SURGERY active Not Available Not Available No t Available oxycodone 5 mg tablet 06/08 completed Not Available Not Available Not Available ezetimibe 10 mg tablet TAKE 1 TABLET BY MOUTH ONCE DAILY 01/14 completed Not Available Not Available Not Available rosuvastati n 5 mg tablet TAKE 1 TABLET BY MOUTH ONCE DAILY active Not Available Not Available No t Available risedronate 150 mg tablet TAKE 1 TABLET BY MOUTH EVERY MONTH active Not Available Not Available No t Available Xarelto 10 mg tablet 05/08 completed Not Available Not Available Not Available triamcinolo ne 0.1 % topical ointment and dimethicone 5 % topical cream as directed 11/18 completed Not Available Not Available Not Available BinaxNOW COVID-19 Ag Self Test kit Use as Directed on the Package 12/12 completed Not Available Not Available Not Available Vitals Date Recorded Systolic blood pressure Diastolic blood pressure Provider Name and Address Organization Details Last Updated DateTime 06/09/2023 140 mm[Hg] 72 mm[Hg] Jory Ross, [employer] [address] [facility], [facility] [address], [place], [address], [facility] [employer] 06/09/2023 10:52:19 Date Recorded Body height Body mass index (BMI) Body weight Body temperature Respiratory rate Oxygen saturation Oxygen saturation in Arterial blood by Pulse oximetry Provider Name and Address Organization Details Last Updated DateTime 154.94 cm 29 kg/m2 39145.7 8 g 96.7 [degF] 20 /min 99 % 99 % Winifred Gresham RN [facility] [employer] 10:32:27 Date Recorded Systolic blood pressure Diastolic blood pressure Provider Name and Address Organization Details Last Updated DateTime 06/09/2022 138 mm[Hg] 82 mm[Hg] Winifred Medina NP [address] [facility], [address], [place], [address], [facility] 06/09/2022 14:31:13 Date Recorded Body height Body mass index (BMI) Body weight Body temperature Heart rate Respiratory rate Oxygen saturation Oxygen saturation in Arterial blood by Pulse oximetry Systolic blood pressure Diastolic blood pressure Provider Name and Address Organization Details Last Updated DateTime 3 154.94 cm 28.9 kg/m2 37941.6 3 g 95.9 [degF] 62 /min 16 /min 97 % 97 % 152 mm[Hg] 88 mm[Hg] Winifred Gresham RN [facility] 3 14:13:19 Date Recorded Body height Body mass index (BMI) Body weight Body temperature Heart rate Respiratory rate Oxygen saturation Oxygen saturation in Arterial blood by Pulse oximetry Systolic blood pressure Diastolic blood pressure Provider Name and Address Organization Details Last Updated DateTime 3 154.94 cm 28.5 kg/m2 06282.8 g 96.5 [degF] 67 /min 20 /min 94 % 94 % 150 mm[Hg] 98 mm[Hg] Winifred Gresham RN [facility] 3 17:37:49 Date Recorded Systolic blood pressure Diastolic blood pressure Systolic blood pressure Diastolic blood pressure Provider Name and Address Organization Details Last Updated DateTime 11/18/2022 146 mm[Hg] 82 mm[Hg] 146 mm[Hg] 82 mm[Hg] David Medina NP [address] [facility] [address], [place], [address] , [facility] 3 14:55:22 Date Recorded Body height Body mass index (BMI) Body weight Body temperature Heart rate Respiratory rate Oxygen saturation Oxygen saturation in Arterial blood by Pulse oximetry Provider Name and Address Organization Details Last Updated DateTime 3 154.94 cm 28.7 kg/m2 36083.7 4 g 96.4 [degF] 68 /min 16 /min 98 % 98 % Winifred Gresham RN [facility] 3 14:38:23 Date Recorded Body mass index (BMI) Body height Oxygen saturation Oxygen saturation in Arterial blood by Pulse oximetry Heart rate Body temperature Body weight Systolic blood pressure Diastolic blood pressure Provider Name and Address Organization Details Last Updated DateTime 2 27.4 kg/m2 154.94 cm 95 % 95 % 89 /min 97.6 [degF] 95769.8 9 g 130 mm[Hg] 78 mm[Hg] Not Available [facility] 00:27:13 Social History Question Answer Notes LastModified by Organization Details LastModified Time Tobacco Smoking Status Never Smoker Not Available [facility] 05/07/2022 00:26:27 Do You Have An Advance Directive? Yes [email or web address].030 [id number] Information not available 05/07/2022 Are You Blind Or Do You Have Difficulty Seeing? No MIGRATION.030 [id number] Information not available 05/07/2022 Is Blood Transfusion Acceptable In An Emergency? Yes Information not available 11/18/2022 What Is Your Level Of Caffeine Consumption? Moderate MIGRATION.030 [id number] Information not available 05/07/2022 In The 14 Days Before Symptom Onset, Have You Had Close Contact With A Laboratory-confi rmed COVID-19 While That Case Was Ill? No MIGRATION.030 [id number] Information not available 05/07/2022 In The 14 Days Before Symptom Onset, Have You Had Close Contact With A Person Who Is Under Investigation For COVID-19 While That Person Was Ill? No MIGRATION.030 [id number] Information not available 05/07/2022 Are You Deaf Or Do You Have Serious Difficulty Hearing? No MIGRATION.030 [id number] Information not available 05/07/2022 What Type Of Diet Are You Following? REGULAR MIGRATION.030 [id number] Information not available 05/07/2022 What Is The Highest Grade Or Level Of School You Have Completed Or The Highest Degree You Have Received? [id number] MIGRATION.[id number] Information not available 05/07/2022 Have There Been Any Changes To Your Family Or Social Situation? Yes Recently Dx With Bone/lung Information not available 06/09/2022 What Is The Fluoride Status Of Your Home? Unknown MIGRATION.030 [id number] Information not available 05/07/2022 Are There Any Guns Present In Your Home? No MIGRATION.030 [id number] Information not available 05/07/2022 Do You Use Insect Repellent Routinely? No MIGRATION.0301 [id number] Information not available 05/07/2022 Where Do You Live? SingleLevelHouse With Basement MIGRATION.0301 [id number] Information not available 05/07/2022 Do You Have A Medical Power Of Greaser And Oiler? Yes Daughter Information not available 11/18/2022 What Was The Date Of Your Most Recent Tobacco Screening? 01/13/2022 MIGRATION.0301 [id number] Information not available 05/07/2022 How Many Children Do You Have? 3 Information not available 06/09/2022 Do You Have Any Pets? Yes MIGRATION.0301 [id number] Information not available 05/07/2022 What Is Your Relationship Status? MIGRATION.0301 [id number] Information not available 05/07/2022 Do You Use Your Seat Belt Or Car Seat Routinely? Yes MIGRATION.0301 [id number] Information not available 05/07/2022 Do You Have Smoke And Carbon Monoxide Detectors In Your Home? Yes MIGRATION.0301 [id number] Information not available 05/07/2022 Do You Participate In Social Media? Yes MIGRATION.0301 [id number] Information not available 05/07/2022 Do You Use Sunscreen Routinely? No MIGRATION.0301 [id number] Information not available 05/07/2022 Has Tobacco Cessation Counseling Been Provided? No MIGRATION.0301 [id number] Information not available 05/07/2022 Have You Recently Traveled Abroad? No MIGRATION.0301 [id number] Information not available 05/07/2022 Do You Have Difficulty Walking Or Climbing Stairs? No MIGRATION.0301 [id number] Information not available 05/07/2022 Are You Currently In School? No MIGRATION.0301 [id number] Information not available 05/07/2022 Do You Have Any Dietary Restrictions? No MIGRATION.0301 [id number] Information not available 05/07/2022 Sex: Female Functional Status Question Answer Note LastModified by Organizat ion Details LastModified Time Do you use any illicit or recreational drugs? No MIGRATION.32475 [id number] Information not available 05/07/2022 Do you or have you ever used any other forms of tobacco or nicotine? No MIGRATION.96790 13687 Information not available 05/07/2022 What is your level of alcohol consumption? Occasional MIGRATION.48857 33028 Information not available 05/07/2022 Are you currently employed? No retired Information not available 06/09/2022 Do you have transportation difficulties? No MIGRATION.50208 [id number] Information not available 05/07/2022 Are you able to walk? YESWOREST MIGRATION.10335 45363 Information not available 05/07/2022 Do you have difficulty doing errands alone? No MIGRATION.01084 18078 Information not available 05/07/2022 Are you able to care for yourself? Yes MIGRATION.52206 83995 Information not available 05/07/2022 Do you have difficulty dressing or bathing? No MIGRATION.19341 08231 Information not available 05/07/2022 What is your exercise level? None active lifestyle Information not available 06/09/2022 Mental Status Question Answer Note LastModified by Organizat ion Details LastModified Time Do you feel stressed (tense, restless, nervous, or anxious, or unable to sleep at night)? [id number] Information not available 10/13/2022 Do you have difficulty concentrating, remembering or making decisions? No [id number] Information not available 05/07/2022 Family History Relationship Description Onset Age of this Age Resolved Age Notes LastModified by Organization Details LastModified Time Mother Kidney disease MIGRATION.947 [id number] Not available 05/07/2022 00:27:06 Mother Hypothyroidi sm MIGRATION.325 [id number] Not available 05/07/2022 00:27:06 Sister Malignant tumor of colon 55 MIGRATION.750 [id number] Not available 05/07/2022 00:27:06 Sister Malignant tumor of cervix 30 MIGRATION.986 [id number] Not available 05/07/2022 00:27:06 Notes:Doesn't know who biolo gical dad is. Medical History Condition Response BLINDNESS N RHEUMATIC FEVER N KIDNEY STONES N BLADDER PROBLEMS Y MRSA N OTHER # 1 N POLIO N LUNG DISEASE/DISORDER N HISTORY OF DRUG ABUSE N RADIATION / CHEMOTHERAPY N COPD N Other # 2 N BLOOD DISEASES N SURGERY N EAR OR HEARING PROBLEMS N MUMPS N SHINGLES N FEMALE PROBLEMS / INFECTIONS N DEPRESSION (INCLUDING POST ) N BOWEL PROBLEMS N STROKE/TIA N THYROID DISEASE N ULCERS N BENIGN PROSTATIC HYPERPLASIA N MEASLES N CERVICALGIA N TB SKIN TEST N HYPOTENSION N MYOCARDIAL INFARCTION N PARAPELGIA N OBESITY N GERD/NAUSEA N ANEURYSM N URINARY/BLADDER/KIDNEY PROBLEMS N CORONARY ARTERY DISEASE (CAD) N MENIERE'S DISEASE N ADDICTION CONCERNS N ENDOMETRIOSIS N USE OF BLOOD THINNERS N SKIN PROBLEMS N EMPHYSEMA N GASTROINTESTINAL DISORDER N MUSCLE,JOINT OR BONE PROBLEMS N GASTROINTESTINAL BLEEDING N BLOOD CLOTS N ASTHMA N CATARACTS N ERECTILE DYSFUNCTION N GI PROBLEMS N CHF N Low Testosterone N NEUROPATHY N INFERTILITY N AIDS/HIV N FRACTURES N CHEMOTHERAPY / RADIATION N VISION/EYE PROBLEMS N LIVER DISEASE N MALE HYPOGONADISM N HYPERTENSION Y TOURETTE'S N ANXIETY DISORDER N BLOOD TRANSFUSION N ANEMIA/BLOOD DISORDER N CHRONIC EAR INFECTIONS N BRONCHITIS N TUBERCULOSIS N GLAUCOMA N FOOT PROBLEM N DIVERTICULITIS N SLEEP APNEA N CHICKENPOX N ALLERGIES/HAYFEVER N INFECTIOUS DISEASE N PROSTATE N HEART ARRHYTHMIA N INSOMNIA N HIGH CHOLESTEROL / HYPERLIPIDEMIA Y HYPERTHYROIDISM N EYE PROBLEMS N EATING DISORDER N EDEMA N CHRONIC PAIN SYNDROME N CONSTIPATION N CAROTID BLOCKAGE N BACK / NECK PROBLEMS N HAVE YOU BEEN HOSPITALIZED OR SEEN IN [facility] IN THE PAST YEAR ? N ATHEROSCLEROSIS N BREAST PROBLEMS N DIALYSIS N ECZEMA N FIBROMYALGIA N OSTEOPOROSIS Y ARTHRITIS N NO SIGNIFICANT PAST MEDICAL HISTORY N APPENDICITIS N DIABETES, TYPE N BAD TEETH N HEARTBURN / REFLUX N ADD/ADHD N AUTISM SPECTRUM DISORDER (ASD) N HEPATITIS / LIVER DISEASE N PULMONARY DISEASE N GOUT N SLEEP DISORDER N ALZHEIMER'S DISEASE N PAIN N HERPES N DEMENTIA N SEIZURES/EPILEPSY N HEADACHES/MIGRAINES N VASCULAR DISEASE N PACEMAKER N DIZZINESS N KIDNEY DISEASE N HEART DISEASE/HEART PROBLEMS N SCARLET FEVER N MULTIPLE SCLEROSIS N MENTAL DISORDER/ILLNESS N DEVELOPMENTAL OR BEHAVIORAL DISORDERS N CARDIAC ARRHYTHMIA N CANCER: SPECIFY N PNEUMONIA N Gall Stones N ATRIAL FIBRILLATION N PULMONARY EMBOLISM N AUTOIMMUNE DISEASE N Gynecological History Statement/Question Response If Post Menopausal, Age at Menopause 42 Date of Last Colonoscopy Date of LMP Obstetrics History GPAL:G 3 P 0 0 0 0 Immunizations Vaccine Type Date Status Note Provider Nam e and Address Organization Details Recorded Time Influenza, high-dose, trivalent, PF 11/29/2021 completed Not Available [facility] 00:28:56 Influenza, high-dose, quadrivalent, PF 11/18/2022 completed Winifred Gresham RN [facility] [place] [facility] [place] [facility] 11/18/2022 16:23:13 Past Encounters Encounter ID Performer Location Encounter Start Date Encounter Closed Date Diagnosis/Indication Diagnosis SNOMED-CT Code Diagnosis ICD10 Code Diagnosis Note [id number] Roverto Shaffer MD [facility] [address] [place] [id number] 1 05/08/2021 00:00:00 05/08/2021 16:27:27 [id number] Roverto Shaffer MD [facility] [address] [place] [id number] 1 08/26/2021 00:00:00 08/26/2021 12:09:02 [id number] Winifred Medina NP [facility] [address] 1 10/24/2021 00:00:00 10/28/2021 16:53:26 [id number] Winifred Medina NP [address] [address] 1 12/12/2021 00:00:00 12/12/2021 09:50:54 [id number] Roverto Shaffer MD [address] [address] 1 01/14/2022 00:00:00 01/14/2022 12:12:10 [id number] Winifred Medina NP [address] [address] 1 06/09/2022 14:02:47 06/09/2022 14:36:39 Hyperlipidemia 28269011 E78.5 Rosuvastat in 5 mg po nightly. Low fat diet. Osteoporosis 25868999 M8 1.0 Risedronat e 150 mg po monthly. Herpes simplex 13369451 B00.9 Acyclovir 400 mg prn. Obesity 619733540 E66.9 Diet and exercise. Low back strain 24989380 1 S39.012A Stable with tylenol for now. [id number] Winifred Medina NP [facility] [address] [place] [address] 1 10/13/2022 17:20:46 10/13/2022 17:52:48 Contact dermatitis caused by urushiol from [place] poison kirby 203641502 L25.5 Continue triamcinol one cream prn.Steroi d shot kenalog today 60 mg. [id number] Winifred Medina NP [address] [address] 1 11/18/2022 14:30:54 11/18/2022 15:24:50 Pre-surgery evaluation [id number] Z01.818 Hysterecto my scheduled for 12/14/22. 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 Administra tion of influenza vaccine 88984006 Z23 [id number] Roverto Shaffer MD [address] [address] 1 06/09/2023 10:20:26 06/09/2023 11:20:07 Hyperlipidemia 87314827 E78.5 Preoperati ve cardiovascular examination 925607738 Z01.810 Health Concerns Section Related Observation LastModified by Organization Detai ls LastModified Time None Recorded Concern Status LastModified by Organization Details LastModified Time None Recorded Advance Directives Directive Y: Payers Encounter Date Sequence Insurance Name Policy Number Policy Hernández Covered Member ID Hernández Member ID Guarantor Name 06/09/2022 1 [place] Jamia R Vignesh [id number] Jamia Vignesh 06/09/2022 2 [employer] (MEDICARE SUPPLEMENT) Jamia Vignesh [id number] Jamia Vignesh 10/13/2022 1 [place] Jamia R Vignesh [id number] Jamia Vignesh 10/13/2022 2 [employer] (MEDICARE SUPPLEMENT) Jamia Vignesh [id number] Jamia Vignesh 11/18/2022 1 [place] Jamia R Vignesh [id number] Jamia Vignesh 11/18/2022 2 [employer] (MEDICARE SUPPLEMENT) Jamia Medellin [id number] Jamia Medellin 06/09/2023 1 [place] Jamia Medellin [id number] Jamia Medellin 06/09/2023 2 [employer] (MEDICARE SUPPLEMENT) Jaima Medellin [id number] aJmia Medellin Notes Date Note Type Note Provider Name and Address Organization Details Recorded Time 06/09/2022 text/html Here for check u p. Right knee- improved. Went to ortho and was cleared.Hyperlipidem ia- Rosuvastatin working well- no side effects.Osteoporosis - 04/2021 osteoporosis. Vit d supplement or MVI daily when remembers. Winifred Medina NP [address], [place], [address], [employer] 06/09/2022 14:36:11 10/13/2022 text/html Here for follow up on poison kirby. Went to and got triamcinolone cream, steroid injection and medrol dose mckinley. Feeling less itchy, but still bad in heat and if forgot benadryl. Aware to avoid plant and will be calling someone to rid of plant. Winifred Medina NP [address], [place], [address], [employer] 10/13/2022 17:51:40 11/18/2022 text/html Here for surgery clearance to get hysterectomy with gynecologic and reconstructive surgery, [facility] and needing clearance letter faxed to [phone]. Has uterine prolapse. Will get hysterectomy.Will have preop blood work and consult with anesthesia on 11/23/22. has passed, but sister will take her to and from procedure. Winifred Medina NP [address], [place], [address], [employer] 11/18/2022 15:23:42 06/09/2023 text/html Jamia Medellin i s a 67 year old female patient here for a medical clearance. She is having retinal hole lattice degeneration cataract repair under general anesthesia with [facility]. Her surgery is 07/06/2023. anesthesia would like an EKG to be performed. She has no complaints today. Jory Ross, POWER PLANT OPERATOR [address] [facility], [place] [address], [place], [address], [facility] [employer] 06/09/2023 11:01:42 OBGyn Episode No OBEpisode recorded.
--- OUTSIDE RECORDS SUMMARY | 2024-08-10 01:31 | XMS_ITS | Clinical Summary ---
Author Organization [facility] Address [address] [place] [address] Phone Care Team Providers Care Stablehand Name Role Phone Unavailable Primary Care Provider Unavailabl e Allergies No known active allergies Medications rosuvastatin (CRESTOR) 5 mg tablet Take 5 mg by mouth daily. Active risedronate (ACTONEL) 150 mg Tablet Take 150 mg by mouth every 30 days. Active multivitamin (DAILY-EMILY) tablet Take 1 Tablet by mouth daily. Active oxyCODONE (ROXICODONE) 5 mg tablet Take 1 Tablet (5 mg) by mouth every 4-6 hours as needed for pain. 27 Tablet 12/15/2022 11:06 AM CDT 12/14/2022 Active Social History Tobacco Use Types Packs/Day Years Used Date Smoking Tobacco: Never Tobacco Cessation:Counseling Given: Not Answered Alcohol Use Standard Drinks/Week Comments Not Currently 0 (1 standard drink = 0.6 oz pur e alcohol) Feeling Safe Answer Date Recorded Are you in a relationship wi th someone who hurts you emotionally and/or physically? Unable to obtain 12/14/2022 Food Insecurity Answer Date Recorded Social/Environmental Concerns No concerns Transportation Needs Answer Date Record ed Social/Environmental Concerns No concerns Housing Stability Answer Date Recorded Social/Environmental Concerns No concerns Utility Needs Answer Date Recorded Social/Environmental Concerns No concerns Comments No Sex and Gender Information Value Date Recorded Sex Assigned at Not on file Legal Sex Female 9:32 AM CDT Gender Identity Not on file Sexual Orientation Not on file Last Filed Vital Signs Vital Sign Reading Time Taken Comments Blood Pressure 124/81 12/15/2022 10:00 AM CDT Pulse 80 12/14/2022 8:23 PM CDT Temperature 36.8 C (98.2 F) 12/15/2022 10:00 AM CDT Respiratory Rate 16 12/15/2022 10:00 AM CDT Oxygen Saturation 98% 12/15/2022 10:00 AM CDT Inhaled Oxygen Concentration - - Weight 68.6 kg (151 lb 4.8 oz) 12/14/2022 7:55 A M CDT Height 149.9 cm (4' 11) 12/14/2022 7:55 AM CDT Body Mass Index 30.56 12/14/2022 7:55 AM CDT Plan of Treatment Health Maintenance Due Date Last Done Comments DTAP/TDAP/TD VACCINES (1 - Tdap) 1972 BREAST CANCER SCREENING 1993 COLORECTAL SCREENING 1998 Colorectal Cancer Screening 1998 FIT-DNA Q 3 years 1998 FIT/FOBT Q 1 year 1998 Flex Sig/CT Colonography Q 5 years 1998 PNEUMOCOCCAL VACCINE 50+ YEA RS (1 of 1 - PCV) 11/16/2003 ZOSTER VACCINE (1 of 2) 11/16/2003 OSTEOPOROSIS SCREENING 2018 INFLUENZA VACCINE (#1) 2023 11/18/2022, 2021 RSV VACCINE (60+ or ) (1 - 1-dose 75+ series) 2028 Medical Devices Implanted Type Area Yarn Man Device Identifier Shelf Expiration Date Model / Serial / Lot Knee Right: Knee Insurance MEDICARE PART A AND B [facility] Medicare Part D Advance Directives For more information, please contact: [phone] * Full Code (Latest Code Status on File) Date Activated Date Inactivated Comments 12/14/2022 1:04 PM 12/15/2022 1:36 PM * Full Code Date Activated Date Inactivated Comments 12/14/2022 8:08 AM 12/14/2022 1:04 PM
--- OUTSIDE RECORDS SUMMARY | 2024-08-10 01:31 | XMS_ITS | Data Portability ---
Author Organization [facility] Address [address] [place] [address] Care Team Providers Care Housing Specialist Name Role Phone RAHEEMCHARLEEN KIMBROUGH Primary Care Provider [phone] Assessment Encounter Date Assessment Date Assessment LastModified by Organization Details LastModified Time 10/03/2020 10/03/2020 Annual gynecological exam performed. Patient will come back in a year unless there are new symptoms. [email or web address] Not available 10/03/2020 11:49:23 Plan of Treatment Reminders Order Date Submit Date Provider Last Modified By Organization Details Last Modified Time Details Appointments None record ed. Lab None record ed. Referral None record ed. Procedures None record ed. Surgeries None record ed. Imaging None record ed. Medication Orders None record ed. Patient TargetsNo targets recorded. Patient InstructionsNo instructions recorded. Reason for Referral None Reported. Results Created Date Observation Date Name Description Value Unit Range Abnormal Flag Note LastModifiedBy Organization Detail LastModifiedTime 10/04/19 21 10/03/2020 IMAGE GUIDE D PAP AND HPV REGAR DLESS image guided Pap, HPV regardless of Pap result SEE RESULT S BELOW CASE REPOR T: Cytol ogy Gynec ologi arslan Repor t Case: [id number] Autho eva g Provi ivon: Gricel Levine MD Colle cted: 10/03 1442 Order ing Locat ion: [place] [facility] Recei kye: 10/04 0137 First Scree n: Rowe , Bansi , CT Speci men: Scree larry Pap - Image d, Cervi x STATE MENT OF ADEQU ACY: Satis facto ry for evalu ation Trans forma tion zone compo nent canno t be defin itive ly ident ified due to the prese nce of atrop hy or other hormo nal garcia es FINAL DIAGN OSIS: Negat bossman for Intra epith elial Lesio n or Miles chaparro (NIL) Atrop hic cell anilte rn Elect marcosdaina sun chiara d by Solomon Rowe , CT on 021 at 2:01 PM ----- ----- ----- ----- ----- ----- ----- ----- ----- ----- ----- ----- ----- ----- ----- ----- ----- ---- HPV RESUL TS: HPV mRNA E6/E7 : No HPV mRNA Detec evangelist NOTE: This high risk HPV mRNA assay detec ts fourt een high- risk HPV types (16, 18, 31, 33, 35, 39, 45, 51, 52, 56, 58, 59, 66, 68) witho ut diffe renti ation . CHART ABLE COMME NT: Note: This speci men was revie wed by a Cytot echno logis t and/o r Patho logis t (as indic ated in this repor t) after evalu ation using the Thinp rep Imagi ng Syste m. CLINI ARSLAN INFOR MATIO N: Menst rual Statu s: LMP (if appli cable ): 010 Clini arslan Histo ry/Pr eviou s Pap: Type of Neopl aracelis (if appli cable ): Signi fican t Clini arslan Findi ngs: Other Histo ry: Hormo piyush (if appli cable ): PAP EDUCA HERNAN L NOTE: The Pap Test is a scree larry test with an inher ent false negat bossman rate. Liqui d-bas e sampl ing may decre ase, but will not elimi blanca, false negat bossman resul ts. A negat bossman resul t does not precl ude the prese nce and/o r devel opmen t of disea se, since the prese nce of abnor mal cells in the sampl e depen ds on the locat ion of the lesio n and sampl ing techn ique. Nancy nued regul ar scree larry is the best metho d of cance r preve ntion . If repor evangelist cytol ogic findi ng do not corre late with physi arslan and/o r histo rical findi ngs, furth er inves tigat ion is recom grazyna d, as clini simon harris nted. Not Available [facility] (Lab) [address], [place], [address], 10/06/2020 15:03:58 05/05/19 22 04/29/2021 DEXA No observ ation record ed. [email or web address] [facility] [address], [place], [address], 07/25/2021 09:30:00 Result Notes None recorded. Problems Name Problem SNOMED Code Status Onset Date Resolution Date Notes Provider Name and Address Organization Details Recorded Time SNOMED CT Concept Active 2018 Encntr for medical billing specialist exam (general) (routine) w/o abn findings; Practice ID: [id number] Not Available [facility] 0 18:20:07 Osteopor osis 75591600 Active 2019 Age-relat ed osteoporo sis w/o current pathologi arslan fracture; Practice ID: [id number] Not Available [facility] 0 18:20:07 Speciali zed medical examinat ion Active 2013 Gynecolog ical Examinati on;Record ed Elsewhere : No Locati on: [facility] So urce: EHR Chron ic: N Practic e ID: [id number] Bill able Time: 02:30:00 PM Not Available [facility] 0 18:20:07 Senile osteopor osis 62809745 Active 2010 Senile osteoporo sis;Recor ded Elsewhere : No Locati on: [facility] So urce: EHR Chron ic: N Practic e ID: [id number] Bill able Time: 01:00:00 PM Not Available [facility] 0 18:20:07 Screenin g for malignan t neoplasm of rectum Active 2010 Screening for malignant neoplasms of the rectum;Re corded Elsewhere : No Locati on: [facility] So urce: EHR Chron ic: N Practic e ID: [id number] Bill able Time: 01:00:00 PM Not Available [facility] 0 18:20:[address] Concept Active 2018 Encntr for general adult medical exam w/o abnormal findings; Recorded Elsewhere : No Locati on: [facility] So urce: EHR Chron ic: N Practic e ID: [id number] Bill able Time: 09:30:00 AM Not Available [facility] 0 18:20:08 Adult health examinat ion Completed 201310/03/2020 ROUTINE MEDICAL EXAM;Sherwin rded Elsewhere : No Locati on: [facility] So urce: EHR Chron ic: N Practic e ID: [id number] Bill able Time: 02:30:00 PM [facility] 1 11:52:25 Herpes zoster [id number] Active 2015 Zoster without complicat ions;Sherwin rded Elsewhere : No Locati on: [facility] So urce: EHR Chron ic: N Practic e ID: [id number] Bill able Time: 10:00:00 AM Not Available [facility] 0 18:20:08 Screenin g for malignan t neoplasm of cervix Completed 201010/03/2020 Screening for malignant neoplasms of the cervix;Re corded Elsewhere : No Locati on: [facility] So urce: EHR Chron ic: N Practic e ID: [id number] Bill able Time: 01:00:00 PM [facility] Avalos [facility] 1 11:52:31 Disorder of breast 90669436 Completed 201010/03/2020 Unspecifi ed breast disorder; Practice ID: [id number] [facility] 1 11:52:27 Problem Notes None recorded. Procedures Surgical History Date Name Laterality Status Provider Name and Address Organization Details Recorded Time 1 operative procedure on knee completed [facility] 10/03/2020 11:55:29 1 Date of Last Mammogram completed [facility] 10/03/2020 11:52:52 4 Date of Last Pap Smear completed [facility] 10/03/2020 11:52:40 Imaging Results None recorded. Procedure Notes None recorded. Medical Equipment None Reported. Medications Name Sig Start Date Stop Date Status Note LastModified by Organization Details LastModified Time Medrol (Mckinley) 4 mg tablets in a dose pack take 1 pack by oral route every day for 6 days 02/15 completed Prescrib ed Elsewher e: No Locat ion: [facility] odify By: dada bermudez DateTime : 02/11/20 16 10:00:00 AM Not Available Not Available Not Available Valtrex 1 gram tablet take 1 tablet by oral route every 12 hours 01/16 completed Prescrib ed Elsewher e: No Locat ion: [facility]ify By: tiff chen DateTime : 02/11/20 16 10:00:00 AM Not Available Not Available Not Available Vitamin D2 1,250 mcg (50,000 unit) capsule take 1 capsule by oral route every week 01/16 completed Prescrib ed Elsewher e: No Locat ion: [facility]ify By: tiff chen DateTime : 01/18/20 14 09:57:33 AM Not Available Not Available Not Available risedrona te 35 mg tablet TAKE ONE TABLET BY MOUTH ONCE A WEEK IN THE MORNING 30 MINUTES BEFORE FOOD, DRINK, OR MEDS active Not Available Not Available No t Available ezetimibe active Not Available Not Marta ilable Not Available diclofena c 1 % topical gel APPLY 2 GRAMS TO THE AFFECTED AREA(S) BY TOPICAL ROUTE 4 TIMES PER DAY active Not Available Not Available No t Available Vitamin D3 50 mcg (2,000 unit) capsule 04/24 completed Prescrib ed Elsewher e: Yes Loca tion: [facility]ify By: tung Encounte r DateTime : 01/17/20 09:30:00 AM Not Available Not Available Not Available oxycodone 10 mg-acetam inophen 300 mg/5 mL oral solution Take 5 mL every 4 hours by oral route. active Not Available Not Available No t Available Vitals Date Recorded Body weight Systolic blood pressure Diastolic blood pressure Provider Name and Address Organization Details Last Updated DateTime 10/03/2020 91622.04 g 150 mm[Hg] 90 mm[Hg] Helena Avalos [facility] 10/03/2020 11:51:34 Social History None recorded. Functional Status None recorded. Mental Status None recorded. Family History Relationship Description Onset Age of this Age Resolved Age Notes LastModified by Organization Details LastModified Time Mother Disorder of thyroid gland [email or web address] Not available 2020 16:54:19 Medical History No medical history recorded. Gynecological History Statement/Question Response Date of Last Pap Smear 01/10/2014 Date of Last Mammogram 03/08/2020 Obstetrics History GPAL:G 0 P 0 0 0 0 Past Encounters Encounter ID Performer Location Encounter Start Date Encounter Closed Date Diagnosis/Indication Diagnosis SNOMED-CT Code Diagnosis ICD10 Code Diagnosis Note [id number] Maurisio Levine MD [facility] [address] [address] 10/03/2020 11:04:41 10/03/2020 12:43:08 Gynecologic examination 69858161 Z01.419 This patient is here for her annual exam. A thorough history was taken. A physical exam was performed. Age appropriat e routine health screening was ordered, performed, and discussed. Recommende d testing was ordered. She was asked to follow up in one year. She will be informed of any test results. Mammogram - [ done] Colonoscop y - wants Cologuard ] Bone Density - [orderer ] Cholestero l - [done ] Pap - today Health Concerns Section Related Observation LastModified by Organization Detai ls LastModified Time None Recorded Concern Status LastModified by Organization Details LastModified Time None Recorded Advance Directives Directive None Recorded Payers Encounter Date Sequence Insurance Name Policy Number Policy Hernández Covered Member ID Hernández Member ID Guarantor Name 10/03/2020 1 [place] Jamia Medellin [id number] Jamia Jewell Vignesh 10/03/2020 2 [employer] (MEDICARE SUPPLEMENT) Jamia Waltont [id number] Jamia Medellin Notes Date Note Type Note Provider Name and Address Organization Details Recorded Time 10/03/2020 text/html Annual GYNReport ed bypatient.History: no gynecologic complaints Urinary symptoms:No hematuria; No incontinence Vulva:No genital lesion Vagina:Normal vaginal discharge Breast:No breast pain; No breast lump; No nipple discharge Sexual complaints:No sexual complaints Menopausal Symptoms:No menopausal symptoms Psychological symptoms:No depression; No anxiety Preventive measures:Encourage self breast examination; Encourage regular exercise Maurisio Levine MD [address], [place], [address], [facility] 10/03/2020 12:16:30 OBGyn Episode Ob Episode Information Episode Created Date Number of Fetuses Patient Bloodtype Patient rh Status Prepregnancy Weight lbs Domestic Partner Domestic Partner Phone Father Name Data Report Analyst Status 10/04/19 21 1 CLOSED Fetus Data First Name Last Name Admitted to NICU Weight (g) Sex Living Outcome Pediatric Complications Fetus ID Race Codes Race Delivery Type [id number] Vaginal Delivery Barney Calculation Initial Barney Date Initial Exam Date Initial Exam Provider Initial Ultrasound Date Last Menstrual Period Date Ultra Sound Weeks Gestation 0 Eighteen To Twenty Week Barney Update Ultra Sound Date Fundal Height At Umbil Quickening Date Ultra Sound Latest Weeks Gestation Final Barney Confirmed By Final Barney Confirmed Date Final Barney Date Ultra Sound Latest Days Gestation 0 0 Menstrual History Last Menstrual Date Menses Monthly On Bcp Conception Prior Menses Frequency Hcg Plus Date Menarche Onset Age Delivery Information Delivery Date Delivery Type Labor Anesthesia Weeks Gestation Incision Type Labor Labor Length Hrs Delivered By Post Complications Tubal Sterilization Discharge Date Comments Discharge Information Feeding Method Contraceptive Method Maternal HG B and HCT Levels Ob Episode Information Episode Created Date Number of Fetuses Patient Bloodtype Patient rh Status Prepregnancy Weight lbs Domestic Partner Domestic Partner Phone Father Name Data Report Analyst Status 10/04/19 21 1 CLOSED Fetus Data First Name Last Name Admitted to NICU Weight (g) Sex Living Outcome Pediatric Complications Fetus ID Race Codes Race Delivery Type [id number] Vaginal Delivery Barney Calculation Initial Barney Date Initial Exam Date Initial Exam Provider Initial Ultrasound Date Last Menstrual Period Date Ultra Sound Weeks Gestation 0 Eighteen To Twenty Week Barney Update Ultra Sound Date Fundal Height At Umbil Quickening Date Ultra Sound Latest Weeks Gestation Final Barney Confirmed By Final Barney Confirmed Date Final Barney Date Ultra Sound Latest Days Gestation 0 0 Menstrual History Last Menstrual Date Menses Monthly On Bcp Conception Prior Menses Frequency Hcg Plus Date Menarche Onset Age Delivery Information Delivery Date Delivery Type Labor Anesthesia Weeks Gestation Incision Type Labor Labor Length Hrs Delivered By Post Complications Tubal Sterilization Discharge Date Comments 1 Discharge Information Feeding Method Contraceptive Method Maternal HG B and HCT Levels Ob Episode Information Episode Created Date Number of Fetuses Patient Bloodtype Patient rh Status Prepregnancy Weight lbs Domestic Partner Domestic Partner Phone Father Name Data Report Analyst Status 10/04/19 21 1 CLOSED Fetus Data First Name Last Name Admitted to NICU Weight (g) Sex Living Outcome Pediatric Complications Fetus ID Race Codes Race Delivery Type [id number] Vaginal Delivery Barney Calculation Initial Barney Date Initial Exam Date Initial Exam Provider Initial Ultrasound Date Last Menstrual Period Date Ultra Sound Weeks Gestation 0 Eighteen To Twenty Week Barney Update Ultra Sound Date Fundal Height At Umbil Quickening Date Ultra Sound Latest Weeks Gestation Final Barney Confirmed By Final Barney Confirmed Date Final Barney Date Ultra Sound Latest Days Gestation 0 0 Menstrual History Last Menstrual Date Menses Monthly On Bcp Conception Prior Menses Frequency Hcg Plus Date Menarche Onset Age Delivery Information Delivery Date Delivery Type Labor Anesthesia Weeks Gestation Incision Type Labor Labor Length Hrs Delivered By Post Complications Tubal Sterilization Discharge Date Comments 2 Discharge Information Feeding Method Contraceptive Method Maternal HG B and HCT Levels
--- OUTSIDE RECORDS SUMMARY | 2024-08-10 01:31 | XMS_ITS | Clinical Summary ---
Author Organization [facility] Address [address] [place] [address] Care Team Providers Care Barrelhead Inspector Name Role Phone Tremaine Lopez MD Primary Care Provider [phone] Source Comments [facility],non-owned Affiliates and Associated Physician Practices is amultiple site organization consisting of ambulatory clinics and hospital sitesin [place], [place], [place]. This disclosure is being madepursuant to the Care Everywhere program and may not contain all information available regarding this patient. Last updated 17.[facility] Allergies No known active allergies Medications * Be aware that medications may not be up to date on this document. Alwaysverify current medications with the patient. ezetimibe (ZETIA) 10 MG tablet Take 10 mg by mouth once daily Active calcium carbonate (CALTRATE) 600 MG tablet Take 1 tablet by mouth daily with food Active naproxen sodium (ALEVE) 220 MG tablet Take 220 mg by mouth 2 times daily as needed for Pain Active rivaroxaban (XARELTO) 10 MG tablet Take 1 (one) tablet by mouth daily with food 14 tablet 09/11/2020 Active Immunizations Immunization Administration Dates Next Due COVID ALESIA PRIMARY 18+YR 08/07/2020 Social History Tobacco Use Types Packs/Day Years Used Date Smoking Tobacco: Never Smokeless Tobacco: Never Alcohol Use Standard Drinks/Week Comments Not Currently 0 (1 standard drink = 0.6 oz pur e alcohol) occas Comments Unknown Sex and Gender Information Value Date Recorded Sex Assigned at Not on file Legal Sex Female 1:43 PM CDT Gender Identity Not on file Sexual Orientation Not on file Last Filed Vital Signs Vital Sign Reading Time Taken Comments Blood Pressure 125/93 09/10/2020 1:45 PM CDT Pulse 74 09/10/2020 1:12 PM CDT Temperature 36.3 C (97.4 F) 09/10/2020 1:45 PM CDT Respiratory Rate 12 09/10/2020 1:12 PM CDT Oxygen Saturation 97% 09/10/2020 1:30 PM CDT Inhaled Oxygen Concentration - - Weight 68.5 kg (151 lb) 09/10/2020 7:58 AM CDT Height 154.9 cm (5' 1) 09/10/2020 7:58 AM CDT Body Mass Index 28.53 09/10/2020 7:58 AM CDT Plan of Treatment Health Maintenance Due Date Last Done Comments BONE DENSITY TESTING 1955 COLOGUARD (AGES 45-75) - COL ON CA SCREENING 1953 COLON MONITORING 1953 COLONOSCOPY - COLON CA SCREENING 1953 CT COLONOGRAPHY - COLON CA SCREENING 1953 Colorectal Cancer Screening 1953 FIT - COLON CA SCREENING 1953 FLEX SIG - COLON CA SCREENING 1953 LIPID TESTING 1955 MAMMOGRAM 1953 HEPATITIS C SCREENING 11/11/1971 DTAP/TDAP/TD VACCINES (1 - Tdap) 1972 PNEUMOCOCCAL VACCINE 50+ (1 of 1 - PCV) 11/16/2003 ZOSTER VACCINE (1 of 2) 11/16/2003 COVID-19 VACCINE (2 - 2023-2 5 season) 2023 08/07/2020 DEPRESSION SCREENING 03/08/2024 INFLUENZA VACCINE (Season Ended) 2024 Respiratory Syncytial Virus (RSV) Vaccine Pt: or over 60 yrs (1 - 1-dose 75+ series) 2028 HEPATITIS B VACCINE Aged Out No longe r eligible based on patient's age to complete this topic HIB VACCINE Aged Out No longer eligi ble based on patient's age to complete this topic HPV VACCINE Aged Out No longer eligi ble based on patient's age to complete this topic MENINGOCOCCAL (Group B) VACC INE SHARED DECISION-MAKING Aged Out No longer eligibl e based on patient's age to complete this topic MENINGOCOCCAL GROUPS A/C/Y/W VACCINE Aged Out No longer eligible b ased on patient's age to complete this topic Medical Devices Implanted Type Area Culinary Director Device Identifier Shelf Expiration Date Model / Serial / Lot Cmnt Bone Plc R+Ggnta Arthpl Hvisc Implanted:Qty: 1 on 09/10/2020 by Ziggy Campbell MD at [facility] Right: Knee Heraeus Kulzer [employer]elen[employer] 05/06/2023 [id number] / / [id number] Right Medial Tibial Tray Implanted:Qty: 1 on 09/10/2020 by Ziggy Campbell MD at [facility] Right: Knee [employer] 12/30/2029 [id number] / / [id number] Small Twin Peg Femoral Implanted:Qty: 1 on 09/10/2020 by Ziggy Campbell MD at [facility] Right: Knee [employer] 11/10/2028 [id number] / / [id number] Right Small 5mm Meniscal Bearing Implanted:Qty: 1 on 09/10/2020 by Ziggy Campbell MD at [facility] Right: Knee [employer] 09/16/2023 [id number] / / [id number] Insurance [facility]IC[facility] [place] [address] Care Teams Barrelhead Inspector Relationship Specialty Start Date End Date Tremaine Lopez MD [address] [place] [address] PCP - General Family Medicine 09/06/20
[2024-08-10 12:56] VITALS: BP 131/78; PULSE 74; RESP 18; TEMP 36.2; O2SAT 98; BMI 25.9
[2024-08-10] MEDS: LACTATED RINGERS 1,000 ML 150 ML IV CONT (13:01)
--- NOTE | 2024-08-10 13:02 | P.PNAN_ITS ---
Anes - Initial Pre Proc Eval Procedure: Operation Date: 08/10/24 14:30 Proposed Procedures p Colonoscopy - Aren Claire MD Date/Time: 08/10/24 13:02 Surgeon: Aren Claire MD Pre Op Diagnosis: Other fecal abnormalities Patient Data Age: 68 Gender: F Height: 1.55 m Weight: 62.4 kg Last Vital Signs Temp 36.2 C L 08/10/24 12:56 Pulse 74 08/10/24 12:56 Resp 18 08/10/24 12:56 BP 131/78 08/10/24 12:56 Pulse Ox 98 08/10/24 12:56 O2 Del Method Room Air 08/10/24 12:56 Allergies Allergy/AdvReac Type Severity Reaction Status Date / Time No Known Allergies Allergy Verified 08/10/24 12:55 Home Medications ?Medication ?Instructions ?Recorded ?Confirmed ?Type calcium carbonate (Calcium 500) 500 mg PO DAILY 07/20/23 08/10/24 History risedronate 150 mg tablet 150 mg PO MONTHLY #6 tabs 10/12/23 08/10/24 Rx estradiol 0.01% (0.1 mg/gram) 1 appful vaginal DAILY 02/22/24 08/10/24 History vaginal cream escitalopram oxalate 10 mg tablet 10 mg PO DAILY #90 tabs 07/13/24 08/10/24 Rx lisinopril 10 mg tablet 10 mg PO DAILY #90 tabs 07/13/24 08/10/24 Rx rosuvastatin 5 mg tablet 5 mg PO DAILY #90 tabs 08/09/24 08/10/24 Rx Patient hx anesthesia problems: none Family hx anesthesia problems: none Results Review: All pre-operative results and documents have been reviewed as part of the pre-operative evaluation. [facility], [facility] Past Medical History Medical History Hyperlipidemia Osteoporosis Surgical History Surgical History H/O eye surgery S/P knee replacement History of hysterectomy Family History Family History Mother Thyroid disorder Social History Social History Social History: 07/16/24 Patient declined SDOH Smoking packs per day: 1 Smoking cigarettes per day: 20.0 Years smoked: 2 Smoking pack-years: 2.00 Smoking status: Never smoker Tobacco type: cigarettes Alcohol intake: never Substance use: never Substance use type: does not use Do You Feel Safe in your Home?: Yes Lack of Transportation: No Lack of Food: Never True Current Housing: I Have Housing Concerned About Future Housing: No Difficulty Paying Gas/Electric Bills: No Difficulty Paying for Meds: No Currently Unemployed: No Education: Don't Know Difficulty w/ Childcare or Family Care: No Living arrangements: alone Additional living arrangements comments: Occupation/Education: retired Spiritual care concerns: No Agree to blood products: Yes Anes - Eval Final PreProcedure Day of Procedure 08/10/24 13:02 Patient weight: overweight Heart: regular rate and rhythm Lungs: clear to auscultation Airway: Mallampati scale class II Neurological: alert and oriented Last oral intake: >/= 8 hours ASA classification: II Emergent: no Anesthetic plan: proceed Anesthesia type and monitoring: general GIVS and standard monitoring Results Review: All pre-operative results and documents have been reviewed as part of the pre- operative evaluation. Informed Consent: The patient's anesthetic plan and its attendant risks and benefits were discussed with the patient/family/POA. Questions were solicited and answers provided to the satisfaction of the patient/family/POA.
--- NOTE | 2024-08-10 13:06 | PM.IMHP ---
H&P: HPI History of Present Illness Date/Time: 08/10/24 13:06 Chief Complaint: Positive Cologuard test Narrative: patient is referred for screening colonoscopy after being found Cologuard positive. Her last colonoscopy was more than 10 years ago. Review of Systems Review of Systems: All systems reviewed & are unremarkable except as noted in HPI and below PMFSH Past Medical History Medical History Hyperlipidemia Osteoporosis Surgical History Surgical History H/O eye surgery S/P knee replacement History of hysterectomy Family History Family History Mother Thyroid disorder Social History Social History Social History: 07/16/24 Patient declined SDOH Smoking packs per day: 1 Smoking cigarettes per day: 20.0 Years smoked: 2 Smoking pack-years: 2.00 Smoking status: Never smoker Tobacco type: cigarettes Alcohol intake: never Substance use: never Substance use type: does not use Do You Feel Safe in your Home?: Yes Lack of Transportation: No Lack of Food: Never True Current Housing: I Have Housing Concerned About Future Housing: No Difficulty Paying Gas/Electric Bills: No Difficulty Paying for Meds: No Currently Unemployed: No Education: Don't Know Difficulty w/ Childcare or Family Care: No Living arrangements: alone Additional living arrangements comments: Occupation/Education: retired Spiritual care concerns: No Agree to blood products: Yes Meds Home Medications and Allergies Home Medications ?Medication ?Instructions ?Recorded ?Confirmed ?Type calcium carbonate (Calcium 500) 500 mg PO DAILY 07/20/23 08/10/24 History risedronate 150 mg tablet 150 mg PO MONTHLY #6 tabs 10/12/23 08/10/24 Rx estradiol 0.01% (0.1 mg/gram) 1 appful vaginal DAILY 02/22/24 08/10/24 History vaginal cream escitalopram oxalate 10 mg tablet 10 mg PO DAILY #90 tabs 07/13/24 08/10/24 Rx lisinopril 10 mg tablet 10 mg PO DAILY #90 tabs 07/13/24 08/10/24 Rx rosuvastatin 5 mg tablet 5 mg PO DAILY #90 tabs 08/09/24 08/10/24 Rx Allergies Allergy/AdvReac Type Severity Reaction Status Date / Time No Known Allergies Allergy Verified 08/10/24 12:55 Vital Signs Vital Signs - 24 hr 08/10/24 12:56 Temperature 97.1 F L Pulse Rate 74 Respiratory Rate 18 Blood Pressure 131/78 Pulse Oximetry 98 Oxygen Delivery Room Air Exam Const: General: cooperative and healthy appearing Resp: Effort & Inspection: normal respiratory effort and able to speak in complete sentences Auscultation: clear to auscultation bilaterally Cardio: Rate: regular rate Rhythm: regular rhythm GI: Inspection: normal to inspection GI Palp: No No hepatosplenomegaly present Auscultation: normal bowel sounds Rectal Exam: deferred Skin: General skin exam: normal color Psych: Appearance: grossly normal Mental Status: mental status grossly normal Assessment and Plan Assessment and plan (1) Positive colorectal cancer screening using Cologuard test: Code(s): R19.5 - Other fecal abnormalities Status: Acute Assessment and Plan: The patient is deemed a good candidate for the procedure. Consent signed. Will proceed.
--- NOTE | 2024-08-10 13:27 | S_PTH ---
PATIENT: Jamia Medellin LOC: [facility] U#:[id number] AGE/SX: 68/F ROOM: RE08/10/[address]: Aren Claire MD : 1955 BED: DIS: 08/10/2024 SPEC #: [id number] RECD: 08/10/24 14:09 STATUS: ELYSIA REJos #: [id number] NANCY: 08/10/24 13:[address]: Aren Claire DEPT: [facility] Surgical RECD BY: Isis Lin ENTERED: 08/10/24 14:09 SP TYPE: Surgical OTHR DR: Winifred Medina APRN Tissues: A - Colon Polypectomy Procedures: Hematoxylin and Eosin Stain Gross and Microscopic Level 4
[2024-08-10 13:28] VITALS: BP 114/66; PULSE 67; RESP 25; O2SAT 96
[2024-08-10 13:38] VITALS: BP 106/67; PULSE 66; RESP 23; O2SAT 97
[2024-08-10 13:48] VITALS: BP 124/82; PULSE 67; RESP 18; O2SAT 98
== END 2024-08-10 14:06 | disposition home or self-care (01) ==
PROVIDERS: PCP Nurse Practitioner Family; Referring Provider Nurse Practitioner Family; Visit Provider Internal Medicine Gastroenterology
PROC: 0DJD8ZZ Inspection of Lower Intestinal Tract, Via Natural or Artificial Opening Endoscopic (ICD-10-PCS; CPT 45378; principal; 2024-08-10 14:30)
DX: R19.5 Other fecal abnormalities (principal); D12.5 Benign neoplasm of sigmoid colon; K57.30 Diverticulosis of large intestine without perforation or abscess without bleeding
CPT/HCPCS: 45385; 88305; J2704; J7120

== ENCOUNTER 2024-08-30 14:51 | Outpatient (CLI) | payer MEDICARE, OTHER, SELFPAY ==
--- NOTE | ~2024-08-30 | CT_ITS ---
EXAMINATION: CT_LERTCHWO_CT DATE: 08/30/2024 15:20 INDICATION: Right hip pain for preoperative planning TECHNIQUE: High resolution computed tomography (CT) of the right hip to include the entire pelvis and bilateral thighs through the knees was performed without intravenous contrast. Additional sagittal a nd coronal reconstructions were performed. Automated exposure control and iterative reconstruction te chnique were employed. The dose-length product was 801.46 mGy-cm. COMPARISON: Radiographs dated 08/18/2024 FINDINGS: L5 spondylolysis with bilateral pars intra-articular is defects and 10 mm anterolisthesis on S1. Virgie re spondylosis at L5-S1 with moderate bilateral neural foraminal stenosis. Bone alignment is otherwis e normal. Unicompartmental arthroplasty at the medial compartment of the right knee. No periprostheti c lucency to suggest loosening or infection. No fractures or suspected osteonecrosis. There is severe osteoarthritis at the right hip with subarticular cystic changes most prominent at th e cephalad aspect of the right acetabulum and to lesser degree along the cephalad and anterior aspect of the femoral head. Opacification along the right acetabular rim insertion of the reflected head of the right rectus femoris muscle belly. Additional mild to moderate osteoarthritis at the contralateral left hip with additional mild subarti cular cystlike change along the lateral rim of the left acetabulum. Mild osteoarthritis at the patell ofemoral compartments of both knees. No hip or knee joint effusion at the left or right. Prominent diverticulosis along the sigmoid and visualized distal descending colon without adjacent fr om trace stranding to suggest diverticulitis. Normal appendix. The uterus is not identified and has l ikely been surgically resected. Bladder is unremarkable. No free fluid in the pelvis. No pathological ly enlarged pelvic or inguinal lymphadenopathy. IMPRESSION: 1. Severe osteoarthritis at the right hip. 2. 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 Reviewed, dictated and finalized at location A.
--- NOTE | 2024-08-30 15:13 | ECG_ITS ---
Test Date: 2024-08-30 15:31:42 Measurements Intervals Hewitt Rate: 60 P: -9 ND: 144 QRS: -40 QRSD: 102 T: 25 QT: 437 QTc: 438 Interpretive Statements SINUS RHYTHM LEFT AXIS DEVIATION DELAYED PRECORDIAL R/S TRANSITION VOLTAE CRITERIA FOR LVH MINIMAL Q WAVES- HIGH LATERAL LEADS BORDERLINE ECG No previous ECG available for comparison Electronically Signed On 08-30-2024 16:36:16 CDT by Vincenzo Castro D.O.
== END 2024-08-30 14:52 | disposition home or self-care (01) ==
PROVIDERS: PCP Nurse Practitioner Family; Visit Provider Orthopaedic Surgery
DX: R94.31 Abnormal electrocardiogram [ECG] [EKG] (principal); M16.11 Unilateral primary osteoarthritis, right hip; M47.818 Spondylosis without myelopathy or radiculopathy, sacral and sacrococcygeal region; M43.18 Spondylolisthesis, sacral and sacrococcygeal region; M47.817 Spondylosis without myelopathy or radiculopathy, lumbosacral region; I10 Essential (primary) hypertension
CPT/HCPCS: 73700; 93005

== ENCOUNTER 2024-11-10 13:48 | Outpatient (CLI) | payer MEDICARE, OTHER, SELFPAY ==
--- OUTSIDE RECORDS SUMMARY | 2024-11-10 14:08 | XMS_ITS | Clinical Summary ---
Author Organization [facility] Address [address] [place] [address] Care Team Providers Care Practice Consultant Name Role Phone Tremaine Lopez MD Primary Care Provider [phone] Source Comments [facility],non-owned Affiliates and Associated Physician Practices is amultiple site organization consisting of ambulatory clinics and hospital sitesin [place], [place], [place] and [place]. This disclosure is being madepursuant to the Care Everywhere program and may not contain all information available regarding this patient. Last updated 17.[email or web address] Allergies No known active allergies Medications * [...] SCREENING 1955 LIPID TESTING 1955 MAMMOGRAM 1955 MEDICARE AWV 12 MONTHS 1955 HEPATITIS C SCREENING 11/11/1971 DTAP/TDAP/TD VACCINES (1 - Tdap) 1972 PNEUMOCOCCAL VACCINE 50+ (1 of 1 - PCV) 11/16/2003 ZOSTER VACCINE (1 of 2) 11/16/2003 COVID-19 VACCINE (2 - 2023-2 5 season) 2023 08/07/2020 DEPRESSION SCREENING 03/08/2024 INFLUENZA VACCINE (#1) 2024 Respiratory Syncytial Virus (RSV) Vaccine Pt: [...] this topic Medical Devices Implanted Type Area Glove Cleaner Device Identifier Shelf Expiration Date Model / Serial / Lot Cmnt Bone Plc R+Ggnta Arthpl Hvisc Implanted:Qty: 1 on 09/10/2020 by Ziggy Campbell MD at [facility] Right: Knee Heraeus Kulzer Jelenko 05/06/2023 [id number] / / [id number] Right Medial Tibial Tray Implanted:Qty: 1 on 09/10/2020 by Ziggy Campbell MD at [facility] Right: Knee [employer] 12/30/2029 [id number] / / [id number] Small Twin Peg Femoral Implanted:Qty: 1 on 09/10/2020 by Ziggy Campbell MD at [facility] Right: Knee [employer] 11/10/2028 [id number] / / [id number] Right Small 5mm Meniscal Bearing Implanted:Qty: 1 on 09/10/2020 by Ziggy Campbell MD at [facility] Right: Knee [employer] 09/16/2023 [id number] / / [id number] Insurance MEDICARE [facility] [place] [address] SELF PAY NO INSURANCE Member Subscriber Plan / Payer (Ef fective for All Dates) Name:Gentry Lyon Member ID:Not on file Relation to Subscriber:Not on file Name:GENTRY LYON Subscriber ID:Not on file (Home) Address: [address] [place] [address] Payer ID:Not on file Group ID:Not on file Type:Self Pay Address: [place], [place] Care Teams Practice Consultant Relationship Specialty Start Date End Date Tremaine Lopez MD [address] [place] [id number] PCP - General Family Medicine 09/06/20
--- OUTSIDE RECORDS SUMMARY | 2024-11-10 14:08 | XMS_ITS | Clinical Summary ---
Author Organization [facility] Address [address] [place] [address] Phone Care Team Providers Care Automatic Fancy Machine Operator Name Role Phone Unavailable Primary Care Provider [...] 11/16/2003 OSTEOPOROSIS SCREENING 2018 INFLUENZA VACCINE (#1) 2024 11/18/2022, 2021 RSV VACCINE (60+ or ) (1 - 1-dose 75+ series) 2028 Medical Devices Implanted Type Area Sash Maker Device Identifier Shelf Expiration Date Model / Serial / Lot Knee Right: Knee Insurance MEDICARE PART A AND B [facility] Medicare Part D Advance Directives For more information, please contact: [phone] * Full Code (Latest Code Status on File) Date Activated Date Inactivated Comments 12/14/2022 1:04 PM 12/15/2022 1:36 PM * Full Code Date Activated Date Inactivated Comments 12/14/2022 8:08 AM 12/14/2022 1:04 PM
[2024-11-10 15:16] LABS: Hematocrit 38.6 % (37.0-47.0); Hemoglobin 12.5 g/dL (12.0-15.0); Immature Granulocyte Percent A 0.4 % (0-0.5); Lymphocytes Absolute Auto 1.43 K/mm3 (0.9-3.2); Mean Corpuscular HGB Conc 32.4 g/dl (32-36); Mean Corpuscular Hemoglobin 31.7 pg (26-34); Mean Corpuscular Volume 98.0 fl (80-100); Nucleated Red Blood Cells Absolute Auto 0.000 K/mm3 (0.0-0.012); Nucleated Red Blood Cells Perc 0.0 % (0.0-0.2); Platelet Count Result 228 k/mm3 (150-375); Red Blood Count 3.94 M/mm3 (4.2-5.4); White Blood Count 5.6 K/mm3 (4.5-10.0)
[2024-11-10 15:39] LABS: Albumin Level 4.3 g/dL (3.5-5.1); Estimated Glomerular Filt Rate 45; Glucose 119 mg/dL (65-110)
[2024-11-10 15:54] LABS: Hemoglobin A1C 5.9 % (<5.7)
[2024-11-10 16:29] LABS: MRSA (PCR) NOT DETECTED (NOT DETECTE)
== END 2024-11-10 13:49 | disposition home or self-care (01) ==
LOC: ANHSURGERY 13:54
PROVIDERS: PCP Nurse Practitioner Family; Visit Provider Orthopaedic Surgery
DX: Z01.812 Encounter for preprocedural laboratory examination (principal); M16.11 Unilateral primary osteoarthritis, right hip
CPT/HCPCS: 80307; 82040; 82565; 82947; 83036; 85025; 87641

== ENCOUNTER 2024-11-30 00:40 | Day surgery (SDC) | payer MEDICARE, OTHER, SELFPAY ==
[2024-11-10 14:16] VITALS: BMI 25.2
--- NOTE | 2024-11-10 14:31 | PC.NURSE ---
Report to the Outpatient Waiting Room, entrance under the green pavilion located off [facility], at time ___08:30am____ on date _11/30/24 . Planned Procedure Time: 10:30am .? Time changes happen often and if your time is changed the preop area will call you the afternoon before. - You and your visitor will be asked to self-screen and do not enter if you have any COVID symptoms. Please call surgeon if you need to reschedule. - A mask is optional within the hospital at this time. Patients may have clear liquids (water, carbonated beverages, clear teas, apple juice) until 3 hours prior to surgery with a maximum of 20 ounces. - No food from midnight until time of surgery and no smoking, or chewing tobacco (or any form of nicotine). No chewing gum, candy or mints. (0730am) Take only the following medications with a SIP of water on the morning of surgery: ____Escitalopram and Tramadol if needed DO NOT STOP ANY OF YOUR OTHER PRESCRIPTION MEDICATIONS PRIOR TO SURGERY EXCEPT THE FOLLOWING Hold all vitamins and supplements for 3 days per anesthesiologist.Last dose is 11/26/24 Medications to discontinue per physician HOLD Aspirin and NSAIDS for [address] Dunn Date to take last dose__11/22/24 Please no make-up, nail libyan, hairspray, perfume, deodorant, or body powder the day of surgery.? No jewelry (including any body piercings) or valuables the day of surgery, leave them at home.? Please take a shower or bath the night before, or the morning of, surgery with an antibacterial soap. ( GOLD DIAL) ? Wear comfortable, loose fitting clothing.? Bring over night bag, cell phone/group chief operator, tennis shoes, walker - Jewelry must be removed prior to entering the operating room.? Rings and piercings that are not removed may be cut off. - The hospital will not accept responsibility for valuables.? - Please leave all valuables, including medications, at home the day of surgery. If you are going home after surgery, a licensed bulk driver must drive you home.? - NO public transportation without another adult if you receive anesthesia. - We recommend that an adult stay with you for 24 hours following discharge. - We also recommend that you do not drive, make important decision, drink alcoholic beverages, or take any drugs that were not prescribed by your health care provider for at least 24 hours after your discharge time. Follow any additional instructions given to you from your surgeon. Telephone instructions given to ___Patient and asked if any additional questions and then verbalized understanding. Patient advised to call surgeon office or pre surgery nurse liaison [phone] if any additional questions.
[2024-11-10 14:39] VITALS: BP 114/70; PULSE 70; RESP 14; TEMP 36.9; O2SAT 99
[2024-11-14] MEDS: LACTATED RINGERS 1,000 ML 30 ML IV CONT (09:15)
[2024-11-30] VITALS (13 sets, daily range): BP systolic 100–256; BP diastolic 45–99; PULSE 57–82; RESP 14–27; TEMP 36.2–36.6; O2SAT 94–99; BMI 25.3
--- NOTE | ~2024-11-30 | XR_ITS ---
EXAMINATION: XR hip RT min 2V DATE: 11/30/2024 13:28 INDICATION: Right total hip arthroplasty TECHNIQUE: 2 views right hip FINDINGS: There is a right total hip arthroplasty in expected position. Subcutaneous gas with soft tissue swelling are consistent with recent surgery. IMPRESSION: 1. Recent right total hip arthroplasty. Reviewed, dictated and finalized at location O.
--- OUTSIDE RECORDS SUMMARY | 2024-11-30 00:46 | XMS_ITS | Clinical Summary ---
Author Organization [facility] Address [address] [place] [address] Phone Care Team Providers Care Power Plant Inspector Name Role Phone Unavailable Primary Care Provider [...] series) 2028 Medical Devices Implanted Type Area Technical Instructor Course Developer Device Identifier Shelf Expiration Date Model / Serial / Lot Knee Right: Knee Insurance MEDICARE PART A AND B [facility] Medicare Part D Advance Directives For more information, please contact: [phone] * Full Code (Latest Code Status on File) Date Activated Date Inactivated Comments 12/14/2022 1:04 PM 12/15/2022 1:36 PM * Full Code Date Activated Date Inactivated Comments 12/14/2022 8:08 AM 12/14/2022 1:04 PM
--- OUTSIDE RECORDS SUMMARY | 2024-11-30 00:46 | XMS_ITS | Clinical Summary ---
Author Organization [facility] Address [address] [place] [address] Care Team Providers Care Client Service Consultant Name Role Phone Tremaine Lopez MD Primary Care Provider [phone] Source Comments [facility],non-owned Affiliates and Associated Physician Practices is amultiple site organization consisting of ambulatory clinics and hospital sitesin [place], [place] and [place]. This disclosure is being madepursuant to the Care Everywhere program and may not contain all information available regarding this patient. Last updated [email or web address] [facility] Allergies No known active allergies Medications * [...] 11/16/2003 ZOSTER VACCINE (1 of 2) 11/16/2003 DEPRESSION SCREENING 03/08/2024 COVID-19 VACCINE (2 - 2024-2 6 season) 2024 08/07/2020 INFLUENZA VACCINE (#1) 2024 Respiratory Syncytial Virus [...] this topic Medical Devices Implanted Type Area Party Plan Sales Unit Sales Leader Device Identifier Shelf Expiration Date Model / Serial / Lot Cmnt Bone Plc R+Ggnta Arthpl Hvisc Implanted:Qty: 1 on 09/10/2020 by Ziggy Campbell MD at [facility] Right: Knee Heraeus Kulzer Jelenko 05/06/2023 [id number] / / [id number] Right Medial Tibial Tray Implanted:Qty: 1 on 09/10/2020 by Ziggy Campbell MD at [facility] Right: Knee [employer] 12/30/2029 [id number] / / [id number] Small Twin Peg Femoral Implanted:Qty: 1 on 09/10/2020 by Ziggy Campbell MD at [facility] Right: Knee [employer] 11/10/2028 [id number] / / [id number] Right Small 5mm Meniscal Bearing Implanted:Qty: 1 on 09/10/2020 by Ziggy Campbell MD at [facility] Right: Knee [employer] 09/16/2023 [id number] / / [id number] Insurance MEDICARE [facility] [place] [address] SELF PAY NO INSURANCE Member Subscriber Plan / Payer (Ef fective for All Dates) Name:Gentry Lyon Member ID:Not on file Relation to Subscriber:Not on file Name:GENTRY LYON Subscriber ID:Not on file (Home) Address: [address] [place] [address] Payer ID:Not on file Group ID:Not on file Type:Self Pay Address: [place], [place] Care Teams Client Service Consultant Relationship Specialty Start Date End Date Tremaine Lopez MD [address] [place] [id number] PCP - General Family Medicine 09/06/20
--- NOTE | 2024-11-30 07:13 | WPDHPUPDATE1 ---
History and Physical Update Update Date/Time: 11/30/24 07:13 History and Physical has been reviewed, including an updated exam of the patient. There are NO changes in the patient's condition. Risks, benefits, and alternatives have been discussed and questions answered. Patient agrees to proceed with procedure.
[2024-11-30] MEDS: TRANEXAMIC ACID 1,000MG/ISO100 1,000 MG/100 ML BAG 200 MG IVPB (09:20)
[2024-11-30] MEDS: ACETAMINOPHEN 500 MG TABLET 1000 MG PO (09:20)
--- NOTE | 2024-11-30 09:37 | P.PNAN_ITS ---
Anes - Initial Pre Proc Eval Procedure: Operation Date: 11/30/24 10:30 Proposed Procedures p Right Custom Total Hip Arthroplasty - Adrian Dunn MD Date/Time: 11/30/24 09:37 Surgeon: Adrian Dunn MD Pre Op Diagnosis: primary oa right hip Patient Data Age: 69 Gender: F Height: 1.55 m Weight: 60.85 kg Last Vital Signs Temp 36.2 C L 11/30/24 08:35 Pulse 65 11/30/24 08:35 Resp 18 11/30/24 08:35 BP 128/87 11/30/24 08:35 Pulse Ox 97 11/30/24 08:35 O2 Del Method Room Air 11/30/24 08:35 Allergies Allergy/AdvReac Type Severity Reaction Status Date / Time No Known Allergies Allergy Verified 11/30/24 09:03 Home Medications ?Medication ?Instructions ?Recorded ?Confirmed ?Type calcium carbonate (Calcium 500) 500 mg PO DAILY 11/30/24 History estradiol 0.01% (0.1 mg/gram) 1 appful vaginal DAILY 1 04/24/23 11/30/24 History vaginal cream rosuvastatin 5 mg tablet 5 mg PO DAILY #90 tabs 08/0911/30/24 Rx cholecalciferol (vitamin D3) 325 325 mcg PO WEEKLY 11/30/24 History mcg (13,000 unit) capsule cyanocobalamin (vitamin B-12) 1,000 mcg PO MONTHLY 11/30/24 History 1,000 mcg capsule tramadol 50 mg tablet 50 mg PO Q12H PRN pain #60 t abs 09/26/24 11/10/24 Rx Held on 11/30/24. Instructions: Resume on 12/14/24. Hold while taking Oxycodone. escitalopram oxalate 10 mg tablet 10 mg PO DAILY #90 t abs 10/03/24 11/30/24 Rx lisinopril 10 mg tablet 10 mg PO DAILY #90 tabs 09/0611/30/24 Rx risedronate 150 mg tablet 150 mg PO MONTHLY #6 tabs 11/30/24 Rx aspirin 81 mg tablet,delayed 81 mg PO BID 14 days #28 tabs 11/30/24 Rx release meloxicam 15 mg tablet 15 mg PO DAILY #30 tabs 11/07 07/30 Rx oxycodone-acetaminophen 5 mg-325 1 - 2 tablet PO Q4-6H PRN pain #30 11/30/24 Rx mg tablet tabs Laboratory Tests 11/30/24 08:44 Blood Type Pending Antibody Screen Pending Patient hx anesthesia problems: none Family hx anesthesia problems: none Results Review: All pre-operative results and documents have been reviewed as part of the pre- operative evaluation. 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 09/12/21 S/P knee replacement (~09/10/20) Partial knee replacement (Right) - Thor Adrian History of hysterectomy (~12/14/22) Family History Family History Mother Thyroid disorder Social History Social History (Updated 11/30/24 @ 09:37 by Jaspal Lainez MD) Social History: 07/16/24 Patient declined SDOH Smoking packs per day: 1 Smoking cigarettes per day: 20.0 Years smoked: 2 Smoking pack-years: 2.00 Smoking status: Former smoker Tobacco type: cigarettes Second hand tobacco smoke exposure: No Smoking end date: 03/08/21 Additional smoking assessment comments: denies nicotine Never smoked on own, just lit cigarrettes for Alcohol intake: never Substance use: never Substance use type: does not use Do You Feel Safe in your Home?: Yes Lack of Transportation: No Lack of Food: Never True Current Housing: I Have Housing Concerned About Future Housing: No Difficulty Paying Gas/Electric Bills: No Difficulty Paying for Meds: No Currently Unemployed: No Education: Don't Know Difficulty w/ Childcare or Family Care: No Living arrangements: alone Additional living arrangements comments: Occupation/Education: retired Spiritual care concerns: No Agree to blood products: Yes Anes - Eval Final PreProcedure Day of Procedure 11/30/24 09:37 Patient weight: normal Heart: regular rate and rhythm Lungs: clear to auscultation Airway: Mallampati scale class II Neurological: alert and oriented Last oral intake: >/= 8 hours ASA classification: II Emergent: no Anesthetic plan: proceed Anesthesia type and monitoring: general ETT and standard monitoring Results Review: All pre-operative results and documents have been reviewed as part of the pre- operative evaluation. Informed Consent: The patient's anesthetic plan and its attendant risks and benefits were discussed with the patient/family/POA. Questions were solicited and answers provided to the satisfaction of the patient/family/POA.
[2024-11-30] MEDS: ceFAZolin 2 GM in SODIUM CHLORIDE 0.9% IV 50 ML 100 ML IVPB (10:23)
[2024-11-30] MEDS: SODIUM CHLORIDE 0.9% IV 37.7 ML, MORPHINE SULFATE INJ (*CRX) 2 MG, ROPivacaine HCL 1% 2... INFILTRATE (11:28)
[2024-11-30] MEDS: LACTATED RINGERS 1,000 ML 30 ML IV CONT (13:07)
--- NOTE | 2024-11-30 13:21 | SUR.PHASEI ---
RIGHT HIP XRAY IN PROGRESS.
[2024-11-30] MEDS: ONDANSETRON INJ 4 MG/2 ML VIAL IV PUSH (13:33)
--- NOTE | 2024-11-30 14:32 | W.PM.PROC2 ---
Procedure Note - Detailed Date of Procedure 11/30/24 Pre-op Diagnosis Right hip degenerative arthritis. Post-op Diagnosis Same Procedure Performed Right Total Hip Arthroplasty Surgeon Adrian Dunn MD Cotton Picker Gina Bunn PA-C Anesthesia General Findings Custom implant optimal fit. PSI resections guides used as per 3D planning. Description of Procedure The patient was given preoperative antibiotics. A general anesthetic was administered. The patient was carefully placed in the lateral decubitus position on the PEG board. The shoulders and hips were carefully positioned for component and leg length positioning reference. The hip was prepped and draped in the usual sterile fashion. A longitudinal incision was created over the posterior aspect of the greater trochanter. Careful dissection was brought down through the deep fascia with electrocautery. A minimally invasive optimized posterior approach to the hip was performed. The short external rotators and capsule were taken down in an L-shaped capsulotomy. The tissue was tagged for later repair using number 2 high strength suture. The femoral neck was measured and taken in situ. The femoral head was removed. The acetabulum was carefully exposed. The inferior capsule was released. The labrum was resected. The acetabulum was sequentially reamed to 2 under the intended cup size. The cup was impacted into position with excellent press-fit. One supplemental screw placed. Typical anatomic landmarks, including the bony contact points as well as the inferior transverse acetabular ligament were used to confirm cup positioning with preoperative templating. Attention was turned to the femur, which was carefully exposed. The hip was reamed and then broached sequentially. Excellent press-fit was obtained with the broach. The hip was trialed. Measurements were utilized, including the lesser trochanter as well as the center of the femoral head and the tip of the trochanter, and excellent assessment of the offset and leg lengths were confirmed. The real component was impacted into position. Trialing confirmed appropriate leg length and offset with soft tissue balancing as well apparent feel of the leg, both at the knee and the heel. Soft tissues were assessed using the the iliotibial band. Reduction of the posterior capsule and external rotators were also used as a secondary assessment. The hip was copiously irrigated with pulsatile lavage periodically throughout the procedure. The real components were then assembled and reduced. The hip was stable throughout typical maneuvers, including extension, external rotation to 70 degrees, the position of sleep as well as flexion to 90 degrees with internal rotation past 35 degrees. The shake test confirmed stability without impingement. Osteophytes were removed as necessary. The short external rotators and capsule were repaired back to the posterior trochanter through drill holes. The deep fascia was repaired with running number 2 Quill barbed suture, followed by 2-0 Stratafix suture and 3-0 Stratafix suture in the dermis. Steri-Strips were placed on the skin, followed by a sterile occlusive dressing. There were no complications. Meticulous hemostasis was maintained with the AquaMantys device. The patient was brought to the recovery room in stable condition. There were no complications. Physician medical staff assistant, Gina Bunn PA-C, required for surgery; including patient positioning, draping, tissue retraction, maintaining instrument position, hip dislocation/ relocation, wound closure, and dressing placement. Implants Restore 3D cusion femur size 2 , was utilized with excellent press-fit. The 48 mm [place] acetabular component was impacted with excellent press-fit stability. Standard polyethylene liner the +0, 32 mm Biolox ceramic femoral head was utilized. Estimated Blood Loss 200 Drains No Packing No Pathology None sent Complications No immediate complications Condition Stable Disposition PACU [facility] Billing Surgery - Charge Forward: Surgery Billing
--- NOTE | 2024-11-30 14:35 | ADMGEN ---
This patient, Jamia Medellin, was admitted to [address] [place] [address] Room 300-01. Patient/family oriented to hospital policies and general routines including ID bracelet, bed and alarms, visiting hours, pain management, procedures, bathroom and other care routines, personal items, smoking policy, room service/diet, and visiting hours. Information on how to activate the Rapid Response Team has been discussed. Patient/Family are encouraged to report perceived risks to care and to ask questions if they do not understand what they are told or what they should do.
[2024-11-30] MEDS: ESCITALOPRAM OXALATE 10 MG TABLET PO (15:18)
[2024-11-30] MEDS: SENNA/DOCUSATE SODIUM TABLET 2 TAB PO (15:18)
[2024-11-30] MEDS: ROSUVASTATIN 5 MG TABLET PO (15:19)
[2024-11-30] MEDS: ACETAMINOPHEN 325 MG TABLET 650 MG PO (15:19)
[2024-11-30] MEDS: FAMOTIDINE 20 MG TABLET PO ×2 (15:19→21:26)
[2024-11-30] MEDS: ASPIRIN 81 MG ENTERIC TABLET PO ×2 (15:19→21:26)
[2024-11-30] MEDS: SODIUM CHLORIDE 0.9% IV 1,000 ML 125 ML IV CONT (15:20)
[2024-11-30] MEDS: oxyCODONE/ACETAMINOPHEN (*CRX) 5-325 MG TABLET 1 TABLET PO (17:13)
[2024-12-01 00:30] VITALS: BP 119/71; PULSE 67; RESP 20; TEMP 35.8; O2SAT 95
[2024-12-01] MEDS: oxyCODONE/ACETAMINOPHEN (*CRX) 10-325 MG TABLET 1 TAB PO ×2 (00:55→06:56)
[2024-12-01] MEDS: ACETAMINOPHEN 325 MG TABLET 650 MG PO ×2 (03:33→12:02)
[2024-12-01 04:30] VITALS: BP 122/65; PULSE 59; RESP 16; TEMP 35.9; O2SAT 95
[2024-12-01 05:33] LABS: Hematocrit 29.9 % (37.0-47.0); Hemoglobin 9.6 g/dL (12.0-15.0); Immature Granulocyte Percent A 0.6 % (0-0.5); Lymphocytes Absolute Auto 1.47 K/mm3 (0.9-3.2); Mean Corpuscular HGB Conc 32.1 g/dl (32-36); Mean Corpuscular Hemoglobin 31.7 pg (26-34); Mean Corpuscular Volume 98.7 fl (80-100); Nucleated Red Blood Cells Absolute Auto 0.000 K/mm3 (0.0-0.012); Nucleated Red Blood Cells Perc 0.0 % (0.0-0.2); Platelet Count Result 176 k/mm3 (150-375); Red Blood Count 3.03 M/mm3 (4.2-5.4); White Blood Count 11.2 K/mm3 (4.5-10.0)
[2024-12-01 05:51] LABS: Anion Gap 3 mmol/L (4-12); Blood Urea Nitrogen 20 mg/dL (7-17); Calcium 8.5 mg/dL (8.4-10.2); Carbon Dioxide 26 mmol/L (22-30); Chloride 102 mmol/L (98-107); Estimated CRCL calculation 35 ml/min; Estimated Glomerular Filt Rate 55; Glucose 99 mg/dL (65-110); Potassium 4.3 mmol/L (3.4-5.0); Sodium 131 mmol/L (137-145)
[2024-12-01] MEDS: SENNA/DOCUSATE SODIUM TABLET 2 TAB PO (08:16)
[2024-12-01] MEDS: ROSUVASTATIN 5 MG TABLET PO (08:17)
[2024-12-01] MEDS: ASPIRIN 81 MG ENTERIC TABLET PO (08:17)
[2024-12-01] MEDS: FAMOTIDINE 20 MG TABLET PO (08:17)
[2024-12-01] MEDS: ESCITALOPRAM OXALATE 10 MG TABLET PO (08:17)
--- NOTE | 2024-12-01 10:15 | P.PNAN_ITS ---
Anes - Prog Note Post-Op Date/Time: 12/01/24 10:15 Cardiovascular status: normal Respiratory status: normal Airway patency: baseline Mental status: baseline Post-Op hydration status: normal Vital Signs: Last Vital Signs Temp 35.9 C L 12/01/24 04:30 Pulse 59 L 12/01/24 04:30 Resp 16 12/01/24 04:30 BP 122/65 12/01/24 04:30 Pulse Ox 95 12/01/24 04:30 O2 Del Method Room Air 12/01/24 08:04 O2 Flow Rate 8 11/30/24 13:35 Pain Score (VAS): 0 I/O: Intake & Output 11/30/24 12/01/24 12/01/24 23:59 07:59 15:59 Intake Total 600 1022 Balance 600 1022 Laboratory Tests 12/01/24 04:48 12/01/24 04:48 12/01/24 04:48 WBC 11.2 H RBC 3.03 L Hgb 9.6 L Hct 29.9 L MCV 98.7 MCH 31.7 MCHC 32.1 RDW 13.5 Plt Count 176 MPV 12.0 H Immature Gran % (Auto) 0.6 H Neut % (Auto) 75.8 H Lymph % (Auto) 13.1 L [place] % (Auto) 10.3 H Eos % (Auto) 0.0 Baso % (Auto) 0.2 Lymph # (Auto) 1.47 [place] # (Auto) 1.2 H Eos # (Auto) 0.0 Baso # (Auto) 0.0 Abs Immat Gran (auto) 0.07 H Absolute Neuts (auto) 8.5 H Absolute Nucleated RBC 0.000 Nucleated RBC % 0.0 Sodium 131 L Potassium 4.3 Chloride 102 Carbon Dioxide 26 Anion Gap 3 L BUN 20 H Creatinine 0.99 Estim Creat Clear Calc 35 Estimated GFR 55 L Glucose 99 Calcium 8.5 Post-procedural complaints: none Patient Feedback: Patient satisfied with anesthetic care.
== END 2024-12-01 12:05 | disposition home or self-care (01) ==
LOC: ANHSURGERY 08:13 → ANH3MEDSUR 14:26
PROVIDERS: Physician Assistant Surgical; PCP Nurse Practitioner Family; Visit Provider Orthopaedic Surgery
PROC: (CPT 27130; principal; 2024-11-30 10:30)
DX: M16.11 Unilateral primary osteoarthritis, right hip (principal); M25.751 Osteophyte, right hip; E78.5 Hyperlipidemia, unspecified; I10 Essential (primary) hypertension; M81.0 Age-related osteoporosis without current pathological fracture; Z79.891 Long term (current) use of opiate analgesic; Z79.82 Long term (current) use of aspirin; Z98.890 Other specified postprocedural states; Z87.891 Personal history of nicotine dependence
CPT/HCPCS: 27130; 36415; 73502; 80048; 85025; 86850; 86900; 86901; 97110; 97161; 97165; 97530; 97535; J0690; A9270; J0166; J1100; J1171; J1885; J2003; J2270; J2405; J2704; J2795; J3010; J7030; J7120

== ENCOUNTER 2025-01-05 15:23 | Outpatient (CLI) | payer MEDICARE, OTHER, SELFPAY ==
--- NOTE | ~2025-01-05 | MM_ITS ---
EXAMINATION: MM screening [facility] BI w kacy HISTORY: Screening TECHNIQUE: Craniocaudal and mediolateral oblique 3-D tomosynthesis images were obtained and synthetic 2-D images were generated. CAD analysis was submitted and interpreted. COMPARISON: Comparison to multiple prior studies sequentially, with oldest reviewed study dated 04/06/2019. BREAST PARENCHYMAL COMPOSITION: Not dense: There are scattered areas of fibroglandular density. FINDINGS: There is no evidence of suspicious mass, calcification, or architectural distortion to suggest malignancy in either breast. There has been no suspicious interval change. IMPRESSION: 1. No mammographic evidence of malignancy. 2. Recommend routine screening mammography in one year. BI-RADS Category 1: Negative Reviewed, dictated and finalized at location B.
== END 2025-01-05 15:24 | disposition home or self-care (01) ==
LOC: MICIMG 15:24
PROVIDERS: PCP Nurse Practitioner Family; Visit Provider Nurse Practitioner Family
DX: Z12.31 Encounter for screening mammogram for malignant neoplasm of breast (principal)
CPT/HCPCS: 77063; 77067